=== PATIENT | male | born 1975 | race Two or more races ===

== ENCOUNTER 2024-11-27 14:01 | Inpatient (IN) | payer BC, OTHER ==
[~2024-11-27] VITALS: Ht 180.3 cm; Wt 112.8 kg
--- NOTE | 2024-11-27 14:52 | ED.PDOC ---
HPI Comments 49 y/o M, BIBA, with PMHx of AAA presents to the ED for CC of chest pain. EMS reports, patient is coming from home where he c/o chest pain with associated symptoms of nausea and shortness of breath onset, this morning (11/27/24). Patient reports, chest pain to be substernal, non-radiating, and "pressure" like in nature. Patient relays, that he was told to have a AAA [id number] ago which measured approximally 4.6cm. EMS relays, patient was given Aspirin and Nitro with no change in symptoms. Patient denies nausea, vomiting, abdominal pain, bloody stools, palpitations, headache, numbness, tingling, or weakness. Chief Complaint: Chest Pain Time Seen by MD: 14:40 Reviewed Notes: Nurses Notes, Chief Engineering Division Notes, Medications, Allergies Allergies: Coded Allergies: Penicillins (Verified Allergy, Unknown, 11/27/24) Information Source: Patient, Emergency Med Personnel Mode of Arrival: EMS Severity: Moderate Timing: Hours Duration: Since onset Prehospital treatment: None Location: Substernal Radiation: No Radiation Quality: Pressure Onset: At Rest Cardiac Risk Factors: Smoker PE Risk Factors: None History of: None Modifying Factors: Nothing Associated Signs and Symptoms: SOB Past Medical History Past Medical History (Other): AAA Surgical History: Hernia Repair Surgical History (Other): right -hand, right knee, left-knee Family History Family History: Unknown Social History Smoker: Cigarettes Alcohol: Occasionally Drugs: Marijuana Lives In: Home Constitutional: denies: chills, diaphoresis, fatigue, fever, malaise, sweats, weakness, others EENTM: denies: blurred vision, double vision, ear bleeding, ear discharge, ear drainage, ear pain, ear ringing, eye pain, eye redness, hearing loss, mouth pain, mouth swelling, nasal discharge, nose bleeding, nose congestion, nose pain, photophobia, tearing, throat pain, throat swelling, voice changes, others Respiratory: reports: shortness of breath; denies: cough, hemoptysis, orthopnea, SOB at rest, SOB with excertion, stridor, wheezing, others Cardiovascular: reports: chest pain; denies: dizzy spells, diaphoresis, Dyspnea on exertion, edema, irregular heart beat, left arm pain, lightheadedness, palp itations, PND, syncope, others Gastrointestinal: denies: abdomen distended, abdominal pain, blood streaked bowels, constipated, diarrhea, dysphagia, difficulty swallowing, hematemesis, melena, nausea, poor appetite, poor fluid intake, rectal bleeding, rectal pain, vomiting, others Genitourinary: denies: burning, dysuria, flank pain, frequency, hematuria, incontinence, penile discharge, penile sore, pain, testicle pain, testicle swelling, urgency, others Neurological: denies: dizziness, fainting, headache, left sided numbness, left sided weakness, numbness, paresthesia, pre-existing deficit, right sided numbness, right sided weakness, seizure, speech problems, tingling, tremors, weakness, others Musculoskeletal: denies: back pain, gout, joint pain, joint swelling, muscle pain, muscle stiffness, neck pain, others Integumetry: denies: bruises, change in color, change in hair/nails, dryness, laceration, lesions, lumps, rash, wounds, others Allergic/Immunocompromised: denies: Difficulty Healing, Frequent Infections, Hives, Itching, others Hematologic/Lymphatic: denies: anemia, blood clots, easy bleeding, easy brui sing, swollen glands, others Endocrine: denies: excessive hunger, excessive sweating, excessive thirst, ex cessive urination, flushing, intolerance to cold, intolerance to heat, unexplained weight gain, unexplained weight loss, others Psychiatric: denies: anxiety, bipolar disorder, depression, hopeless, panic disorder, schizophrenia, sleepless, suicidal, others All Other Systems: Reviewed and Negative Physical Exam General Appearance: Moderate Distress HEENT: Normal ENT Inspection, Pharynx Normal, TMs Normal Neck: Full Range of Motion, Non-Tender, Normal, Normal Inspection Respiratory: Chest Non-Tender, Lungs Clear, No Accessory Muscle Use, No Respiratory Distress, Normal Breath Sounds Cardiovascular: No Edema, No JVD, No Murmur, No Gallop, Normal Peripheral Pulses, Regular Rate/Rhythm Breast Exam: Deferred Gastrointestinal: No Organomegaly, Non Tender, No Pulsatile Mass, Normal Bowel Sounds, Soft Genitalia: Deferred Pelvic: Deferred Rectal: Deferred Extremities: No calf tenderness, Normal capillary refill, Normal inspection, Normal range of motion, Non-tender, No pedal edema Musculoskeletal : Apperance: Normal Neurologic: Alert, speech pathologist assistant II-XII nml as Tested, No Motor Deficits, Normal Affect, Normal Mood, No Sensory Deficits Cerebellar Function: Normal Reflexes: Normal Skin: Dry, Normal Color, Warm Lymphatic: No Adenopathy EKG EKG : Pulse Rate (adult): 70 Munger: Normal Cardiac Rhythm: NSR Block: None Was a procedure done? Was a procedure done?: No CP Differential Dx Differential Diagnosis: Angina Differential Diagnosis: Chest Wall Pain, Costochondritis, Esophageal reflux/spasm, Gastritis X-Ray, Labs, Meds, VS Vital Signs Date Time Temp Pulse Resp B/P (MAP) Pulse Ox O2 Delivery O2 Flow Rate FiO2 11/27/24 15:02 72 11/27/24 14:24 97.8 77 16 129/92 99 97.8 11/27/24 14:04 70 Lab Test 11/27/24 16:13 11/27/24 15:51 11/27/24 15:00 Range/Units Urine Color Yellow Yellow Urine Clarity Clear Clear Urine pH 6.5 5.0-9.0 Urine Specific [place] 1.035 1.001-1.035 Urine Protein Trace H Negative Urine Ketones Negative Negative Urine Blood Negative Negative /uL Urine Nitrite Negative Negative Urine Bilirubin Negative Negative Urine Urobilinogen Normal Negative mg/dL Urine Leukocyte Esterase Negative Negative /uL Urine RBC 4 0 - 3 /hpf Urine Microscopic WBC 1 0-3 /HPF Urine Squamous Epithelial Cells Few <5 /hpf Urine Bacteria None seen None Seen /hpf Urine Mucus Few None Seen Urine Glucose Normal Normal mg/dL Troponin I High Sensitivity 3 L 4 </=54 ng/L White Blood Count 15.2 H 4.4-10.8 10^3/uL Red Blood Count 5.83 4.5-5.90 10^6/uL Hemoglobin 17.4 13.5-17.5 g/dL Hematocrit 51.2 41.0-53.0 % Mean Corpuscular Volume 87.9 80.0-100.0 fL Mean Corpuscular Hemoglobin 29.8 28.0-32.0 pg Mean Corpuscular Hemoglobin Concent 33.9 32.0-36.0 g/dL Red Cell Distribution Width 13.9 11.8-14.3 % Platelet Count 311 140-450 10^3/uL Mean Platelet Volume 7.5 6.9-10.8 fL Neutrophils (%) (Auto) 73.7 37.0-80.0 % Lymphocytes (%) (Auto) 16.9 10.0-50.0 % Monocytes (%) (Auto) 8.2 0.0-12.0 % Eosinophils (%) (Auto) 0.8 0.0-7.0 % Basophils (%) (Auto) 0.4 0.0-2.0 % Neutrophils # (Auto) 11.2 H 1.6-8.6 10 ^3/uL Lymphocytes # (Auto) 2.6 0.4-5.4 10 ^3/uL Monocytes # (Auto) 1.2 0-1.3 10 ^3/uL Eosinophils # (Auto) 0.1 0-0.8 10 ^3/uL Basophils # (Auto) 0.1 0-0.2 10 ^3/uL Nucleated Red Blood Cells 0.3 % B-Type Natriuretic Peptide 5.35 0-100 pg/mL [place] [id number] Ph: [phone] DIAGNOSTIC IMAGING Diagnostic Imaging Report : [id number] Signed PATIENT: EUGENIO BASS ACCT: [id number] UNIT: [id number] : 1975 LOC: ER ROOM / BED: / AGE / SEX: 49 / M ADM STATUS: REG ER SERVICE [id number] ORDERING PHYSICIAN: CANDI CHACON MD PROCEDURE(s): CXRP - CHEST PORTABLE REASON: cp ORDER NUMBER(s): [id number], ACCESSION NUMBER(s): [id number] XY CHEST PORTABLE, HISTORY: cp COMPARISON: None None TECHNICAL DATA: 1 view of the chest was obtained. FINDINGS: Lines and tubes: None Cardiomediastinal silhouette: normal Pulmonary vasculature: normal Lung expansion: normal Lung airspace: normal Lung interstitium: normal Pleura: normal Pneumothorax: no Bones: Unremarkable Other: no IMPRESSION: No acute intrathoracic abnormality. The CBC shows an elevated white blood cell count of 15.2. The chemistry panel is within normal limits The urine test is negative The troponin level x2 is negative The patient has risk factors that place him at risk to discharged home so the patient is being admitted with a diagnosis of acute myocardial ischemia Images Reviewed?: Images reviewed and evaluated by me Time of 1ST Reevaluation: 15:10 Reevaluation 1ST: Unchanged Patient Education/Counseling: Diagnosis, Treatment, Prognosis Family Education/Counseling: No Family Present SEPSIS Sepsis Screen Date sepsis recognized/suspect: Nov 27, 2024 Time Sepsis recognized/suspect: 1408 Recent Procedure: No On Antibiotic Therapy: No Respiratory Rate >20: No Heart Rate >90: No Temp<36 C (96.8 F) or >38.3 C: No SBP <90 or MAP <65 mmHG: No New Acute Mental Status Change: No Is the patient on CPAP, BIPAP,: No Physician Orders Electrocardigram (11/27/24 15:11) Electrocardigram (11/27/24 17:11) Chest Portable (11/27/24 14:33) Heplock Iv (11/27/24 14:33) Shop Teacher (11/27/24 14:33) Blood Pressure (11/27/24 14:33) Pulse Oximetry (11/27/24 14:33) Troponin-I Hs (11/27/24 17:33) Vital Signs Date Time Temp Pulse Resp B/P (MAP) Pulse Ox O2 Delivery O2 Flow Rate FiO2 11/27/24 15:02 72 11/27/24 14:24 97.8 77 16 129/92 99 97.8 11/27/24 14:04 70 Laboratory Tests Test 11/27/24 15:00 White Blood Count 15.2 10^3/uL (4.4-10.8) H Departure 1 Departure Time of Disposition: 17:48 Impression: Primary Impression: Acute myocardial ischemia Disposition: 09 ADMITTED INPATIENT Admit to: Tele Condition: Fair Critical Care Note Critical Care Time?: Yes (45 min-critical care time only) Stability Stability form required: Yes Unstable for transfer: Telemetry monitoring (Telemetry monitoring required), ED Physician Assesment (Clinical assesment) Heart Score Heart Score: Heart Score Response (Comments) Value History Moderate Suspicious 1 EKG Repolarization Disturb 1 Age 45-64 1 Risk Factors >3 or Hx ASHD 2 Troponin Normal limit 0 Total 5 I personally scribed for CANDI CHACON MD ([email or web address]) on 11/27/24 at 14:52. Electronically submitted by Cassandra France ([email or web address]). I personally scribed for CANDI CHACON MD ([email or web address]) on 11/27/24 at 15:06. Electronically submitted by Charu Robbins ([facility]). I personally scribed for CANDI CHACON MD ([email or web address]) on 11/27/24 at 15:43. Electronically submitted by Cassandra France ([email or web address]). CANDI CHACON MD Nov 27, 2024 14:52
--- NOTE | 2024-11-27 15:04 | DVH ---
XY CHEST PORTABLE, HISTORY: cp COMPARISON: None None TECHNICAL DATA: 1 view of the chest was obtained. FINDINGS: Lines and tubes: None Cardiomediastinal silhouette: normal Pulmonary vasculature: normal Lung expansion: normal Lung airspace: normal Lung interstitium: normal Pleura: normal Pneumothorax: no Bones: Unremarkable Other: no IMPRESSION: No acute intrathoracic abnormality.
--- NOTE | 2024-11-27 15:04 | ECG ---
[facility] Test Date: 2024-11-27 Test Time: 15:02:42 Pat Name: EUGENIO BASS Department: ED Room: 0212T Gender: M Feeder Catcher: yoanna : 1975 Requested By: EMERGENCY EMERGENCY Order Number: [id number] Reading MD: Karl Marlow Measurements Intervals [place] Rate: 72 P: 9 FL: 168 QRS: -35 QRSD: 102 T: 56 QT: 410 QTc: 449 Interpretive Statements Sinus rhythm Left axis deviation Low voltage, extremity and precordial leads Consider anterior infarct Electronically Signed On 11-29-2024 15:08:30 PDT by Karl Marlow Please click the below link to view image of tracing.
[2024-11-27 15:18] LABS: Hematocrit 51.2 % (41.0-53.0); Hemoglobin 17.4 g/dL (13.5-17.5); Mean Corpuscular Hemoglobin 29.8 pg (28.0-32.0); Mean Corpuscular Volume 87.9 fL (80.0-100.0); Nucleated Red Blood Cells % 0.3 %
[2024-11-27 16:26] LABS: Urine Protein, UAD TRACE (Negative)
[2024-11-27] MEDS ORDERED: MORPHINE SULFATE INJ 2 MG/ml SYRG IV PRN (19:30)
[2024-11-27] MEDS ORDERED: ONDANSETRON HCL 4 MG/2 ML VIAL IV PRN (19:30)
--- NOTE | 2024-11-27 22:23 | DVHHP2 ---
History of Present Illness Reason for Visit: Chest pain History of Present Illness 49-year-old male presents for evaluation of chest pain. Patient reports a one day history of substernal nonradiating chest pressure with associated shortness for breath. She reports history of a AAA two years ago. No nausea or vomiting. No diaphoresis. Past Medical History AAA Past Surgical History Hand surgery Family History Noncontributory Smoke: <1 pack per day ALCOHOL: occassional Drugs: Marijuana Lives: with Family Review of Systems Review of Systems Review of systems are currently negative otherwise addressed in HPI. Allergies: Coded Allergies: Penicillins (Verified Allergy, Unknown, 11/27/24) Medications Current Medications Medications Dose Ordered Sig/Ben Route Start Time Stop Time Status Last Admin Dose Admin Aspirin 81 mg DAILY PO 11/28/24 10:00 Valsartan 160 mg DAILY PO 11/28/24 10:00 Hydrochlorothiazide 12.5 mg DAILY PO 11/28/24 10:00 Metoprolol Succinate 25 mg DAILY PO 11/28/24 10:00 Ondansetron HCl 4 mg Q4HP PRN IV 11/27/24 19:30 Acetaminophen 650 mg Q6HP PRN PO 11/27/24 19:30 Nitroglycerin 0.4 mg Q5MINP PRN SL 11/27/24 19:30 Morphine Sulfate 2 mg Q30M PRN IV 11/27/24 19:30 Exam Vital Signs Vital Signs Date Time Temp Pulse Resp B/P (MAP) Pulse Ox O2 Delivery O2 Flow Rate FiO2 11/27/24 17:50 70 11/27/24 14:24 97.8 16 129/92 99 97.8 Exam Gen: 49-year-old male in mild distress. Skin: Warm, dry, normal color and texture, no rash. HEENT: Normocephalic atraumatic, mucous membranes moist and pink. Neck: Cervical and supraclavicular nodes normal without enlargement, trachea is midline, thyroid gland is normal without masses. Pulmonary: Clear to auscultation and percussion bilaterally. Cardiac: Regular rate and rhythm. No murmur Abdomen: Soft, nontender, nondistended, bowel sounds present all 4 quadrants, no guarding, no rigidity, no organomegaly. Extremities: No cyanosis, clubbing, no edema Neuro: Cranial nerves II through XII grossly intact, normal affect and speech, no focal motor deficits. Labs/Xrays ORDERING PHYSICIAN: CANDI CHACON MD PROCEDURE(s): CXRP - CHEST PORTABLE REASON: cp ORDER NUMBER(s): [id number], ACCESSION NUMBER(s): [id number] XY CHEST PORTABLE, HISTORY: cp COMPARISON: None None TECHNICAL DATA: 1 view of the chest was obtained. FINDINGS: Lines and tubes: None Cardiomediastinal silhouette: normal Pulmonary vasculature: normal Lung expansion: normal Lung airspace: normal Lung interstitium: normal Pleura: normal Pneumothorax: no Bones: Unremarkable Other: no IMPRESSION: No acute intrathoracic abnormality. Labs Test 11/27/24 16:13 11/27/24 15:51 11/27/24 15:00 Range/Units Urine Color Yellow Yellow Urine Clarity Clear Clear Urine pH 6.5 5.0-9.0 Urine Specific [place] 1.035 1.001-1.035 Urine Protein Trace H Negative Urine Ketones Negative Negative Urine Blood Negative Negative /uL Urine Nitrite Negative Negative Urine Bilirubin Negative Negative Urine Urobilinogen Normal Negative mg/dL Urine Leukocyte Esterase Negative Negative /uL Urine RBC 4 0 - 3 /hpf Urine Microscopic WBC 1 0-3 /HPF Urine Squamous Epithelial Cells Few <5 /hpf Urine Bacteria None seen None Seen /hpf Urine Mucus Few None Seen Urine Glucose Normal Normal mg/dL Troponin I High Sensitivity 3 L </=54 ng/L White Blood Count 15.2 H 4.4-10.8 10^3/uL Red Blood Count 5.83 4.5-5.90 10^6/uL Hemoglobin 17.4 13.5-17.5 g/dL Hematocrit 51.2 41.0-53.0 % Mean Corpuscular Volume 87.9 80.0-100.0 fL Mean Corpuscular Hemoglobin 29.8 28.0-32.0 pg Mean Corpuscular Hemoglobin Concent 33.9 32.0-36.0 g/dL Red Cell Distribution Width 13.9 11.8-14.3 % Platelet Count 311 140-450 10^3/uL Mean Platelet Volume 7.5 6.9-10.8 fL Neutrophils (%) (Auto) 73.7 37.0-80.0 % Lymphocytes (%) (Auto) 16.9 10.0-50.0 % Monocytes (%) (Auto) 8.2 0.0-12.0 % Eosinophils (%) (Auto) 0.8 0.0-7.0 % Basophils (%) (Auto) 0.4 0.0-2.0 % Neutrophils # (Auto) 11.2 H 1.6-8.6 10 ^3/uL Lymphocytes # (Auto) 2.6 0.4-5.4 10 ^3/uL Monocytes # (Auto) 1.2 0-1.3 10 ^3/uL Eosinophils # (Auto) 0.1 0-0.8 10 ^3/uL Basophils # (Auto) 0.1 0-0.2 10 ^3/uL Nucleated Red Blood Cells 0.3 % B-Type Natriuretic Peptide 5.35 0-100 pg/mL SEPSIS Sepsis Screen Date sepsis recognized/suspect: Nov 27, 2024 Time Sepsis recognized/suspect: 1407 Recent Procedure: No On Antibiotic Therapy: No Respiratory Rate >20: No Heart Rate >90: No Temp<36 C (96.8 F) or >38.3 C: No SBP <90 or MAP <65 mmHG: No New Acute Mental Status Change: No Is the patient on CPAP, BIPAP,: No Physician Orders Chest Portable (11/27/24 14:33) Heplock Iv (11/27/24 14:33) Hearing Aid Technician (11/27/24 14:33) Blood Pressure (11/27/24 14:33) Pulse Oximetry (11/27/24 14:33) Aspirin Tablet (11/28/24 10:00) Valsartan (Diovan) (11/28/24 10:00) Hydrochlorothiazide Tablet (Hydrochlorot (11/28/24 10:00) Metoprolol Xl Succinate (Toprol Xl) (11/28/24 10:00) Basic Metabolic Panel (11/28/24 04:00) Admit (11/27/24 19:26) Ondansetron Hcl (Zofran) (11/27/24 19:30) Cardiac Diet-2gna,Lofat,Lochol (11/28/24 Breakfast) Echo 2d Mode Cardiac Dop (11/27/24 19:26) Condition: Fair (11/27/24 19:26) Acetaminophen Tablet (Tylenol Tablet) (11/27/24 19:30) Bedrest With Bathroom Privileg (11/27/24 19:26) Nitroglycerin Sublingual (Ntrostat Subli (11/27/24 19:30) Morphine Sulfate Injection (11/27/24 19:30) Stat Ekg For Chest Pain (11/27/24:) Notify Md Of Changes From Base (11/27/24 19:26) Machine Burrer For 24 Hours (11/27/24:) Emergency Dysrhythmia Protocol (11/27/24:) Rhythm Strips Once Every Shift (11/27/24:) Oxygen By Nasal Cannula (11/27/24:) Vital Signs Date Time Temp Pulse Resp B/P (MAP) Pulse Ox O2 Delivery O2 Flow Rate FiO2 11/27/24 17:50 70 11/27/24 15:02 72 11/27/24 14:24 97.8 77 16 129/92 99 97.8 Laboratory Tests Test 11/27/24 15:00 White Blood Count 15.2 10^3/uL (4.4-10.8) H Assessment/Plan Assessment/Plan Assessment Chest pain Hypertension Active smoker Plan Admit the patient to telemetry to the hospitalist Echocardiogram pending ACS protocol Continue treatment per orders. Plan discussed with: Patient My Orders Orders - SAMMIE GIRALDO Procedure Category Date Status Time Aspirin Tablet PHA 11/28/24 In Process 10:00 Valsartan (Diovan) PHA 11/28/24 In Process 10:00 Hydrochlorothiazide PHA 11/28/24 In Process Tablet (Hydrochlorot 10:00 Metoprolol Xl PHA 11/28/24 In Process Succinate (Toprol Xl) 10:00 Basic Metabolic Panel LAB 11/28/24 Verified 04:00 Admit ADMIT 11/27/24 Transmitted 19:26 Ondansetron Hcl PHA 11/27/24 In Process (Zofran) 19:30 Cardiac DIET 11/28/24 Transmitted Diet-2gna,Lofat,Lochol Breakfast Echo 2d Mode Cardiac US 11/27/24 Logged DOP 19:26 Condition: Fair STEFANIA 11/27/24 In Process 19:26 Acetaminophen Tablet PHA 11/27/24 In Process (Tylenol Tablet) 19:30 Bedrest With Bathroom STEFANIA 11/27/24 In Process Privileg 19:[address] [facility] 11/27/24 In Process Sublingual (Ntrostat 19:30 Morphine Sulfate PHA 11/27/24 In Process Injection 19:30 Stat Ekg For Chest [facility] 11/27/24 In Process Pain 19:26 Notify Md Of Changes [facility] 11/27/24 In Process From Base 19:26 Machine Burrer For [facility] 11/27/24 In Process 24 Hours 19:26 Emergency Dysrhythmia [facility] 11/27/24 In Process Protocol 19:26 Rhythm Strips Once [facility] 11/27/24 In Process Every Shift 19:26 Oxygen By Nasal RT 11/27/24 Transmitted Cannula 19:26 Date of Service: Nov 27, 2024 Billing Provider: SAMMIE GIRALDO Common Visit Codes: [id number] INP/OBS CARE (HIGH) SAMMIE GIRALDO Nov 27, 2024 22:23
[2024-11-27 22:39] LABS: Triglycerides 106 mg/dL (< 150)
[2024-11-27 22:41] LABS: Cholesterol 169 mg/dL (< 200); HDL Cholesterol 46 mg/dL (40-59)
[2024-11-28 00:03] VITALS: PULSE 70; RESP 18; O2SAT 95
[2024-11-28 03:41] LABS: Chloride 103 mmol/L (98-107); Potassium 4.4 mmol/L (3.5-5.1); Sodium 142 mmol/L (136-145)
[2024-11-28 03:42] LABS: Anion Gap 9 (5-15); Calcium 9.0 mg/dL (8.7-10.4); Carbon Dioxide 30 mmol/L (20-31)
[2024-11-28 03:47] LABS: BUN/Creatinine Ratio 10.3 (10.0-20.0); Blood Urea Nitrogen 12 mg/dL (9-23); Glucose 102 mg/dL (74-106)
[2024-11-28 09:00] VITALS: BP 103/76; PULSE 84; RESP 22; TEMP 97.8; O2SAT 98
[2024-11-28] MEDS: VALSARTAN 80 MG TAB PO SCH (10:00)
[2024-11-28] MEDS: METOPROLOL SUCCINATE XL 50 MG TAB PO SCH (10:00)
[2024-11-28] MEDS: hydroCHLOROthiazide 25 MG TAB PO SCH (10:00)
[2024-11-28 13:00] VITALS: BP 123/79; PULSE 61; RESP 16; TEMP 97.9; O2SAT 96
[2024-11-28] MEDS: IOHEXOL 350 MG/ML 100ML IJ ONE (15:56)
--- NOTE | 2024-11-28 16:06 | DVHPN2 ---
Subjective Continues to have intermittent chest pain. Reviewed: Care Plan, H&P, Labs, Medications Changes from previous H/P or p: No Changes General: Per HPI Objective Vitals Vital Signs Date Time Temp Pulse Resp B/P (MAP) Pulse Ox O2 Delivery O2 Flow Rate FiO2 11/28/24 13:00 97.9 61 16 123/79 (94) 96 97.9 11/28/24 00:03 Room Air* 0 21 General Appearance: Alert, Oriented X3, Cooperative HEENT: Atraumatic, PERRLA Lungs: Clear to auscultation, Normal air movement Cardiovascular: Normal S1, Normal S2 Abdomen: Normal bowel sounds, Soft, No tenderness Musculoskeletal: Normal sensory function, Normal motor function Skin: Dry, Intact Psych/Mental Status: Mental status NL, Mood NL Medications Current Medications Medications Dose Ordered Sig/Ben Route Start Time Stop Time Status Last Admin Dose Admin Aspirin 81 mg DAILY PO 11/28/24 10:00 11/28/24 10:00 81 MG Valsartan 160 mg DAILY PO 11/28/24 10:00 11/28/24 10:00 160 MG Hydrochlorothiazide 12.5 mg DAILY PO 11/28/24 10:00 11/28/24 10:00 12.5 MG Metoprolol Succinate 25 mg DAILY PO 11/28/24 10:00 11/28/24 10:00 25 MG Ondansetron HCl 4 mg Q4HP PRN IV 11/27/24 19:30 Acetaminophen 650 mg Q6HP PRN PO 11/27/24 19:30 Nitroglycerin 0.4 mg Q5MINP PRN SL 11/27/24 19:30 Morphine Sulfate 2 mg Q30M PRN IV 11/27/24 19:30 Laboratory Results Laboratory Tests 11/27/24 15:00 11/28/24 03:05 Chemistry Test 11/28/24 03:05 Calcium Level 9.0 mg/dL (8.7-10.4) Urinalysis Test 11/27/24 16:13 Urine Color Yellow (Yellow) Urine Clarity Clear (Clear) Urine pH 6.5 (5.0-9.0) Urine Specific [place] 1.035 (1.001-1.035) Urine Protein Trace (Negative) H Urine Ketones Negative (Negative) Urine Blood Negative /uL (Negative) Urine Nitrite Negative (Negative) Urine Bilirubin Negative (Negative) Urine Urobilinogen Normal mg/dL (Negative) Urine Leukocyte Esterase Negative /uL (Negative) Urine RBC 4 /hpf (0 - 3) Urine Microscopic WBC 1 /HPF (0-3) Urine Squamous Epithelial Cells Few /hpf (<5) Urine Bacteria None seen /hpf (None Seen) Urine Mucus Few (None Seen) Urine Glucose Normal mg/dL (Normal) Labs and/or images reviewed: Labs reviewed by me, Image(s) reviewed by me Assessment/Plan Assessment/Plan Impression: -Chest pain -Reported Hx of Ascending Aortic Aneurysm -Primary hypertension -Nicotine Dependence Plan: -CT angiogram of the chest -BP control to keep SBP less than 130mmhg -Pain management -Cardiology Consult -Echocardiogram Total time: 35 min spent with the patient. Plan discussed with: Patient, Other (RN) My Orders Orders - TYLER CAMPBELL NP Procedure Category Date Status Time Aaa Screening US 11/29/24 Logged 08:[address] 11/28/24 Logged Contrast 15:39 Basic Metabolic Panel LAB 11/29/24 Verified 04:00 Date of Service: Nov 28, 2024 Billing Provider: TYLER CAMPBELL NP Common Visit Codes: [id number] INP/OBS CARE(HIGH) TYLER CAMPBELL NP Nov 28, 2024 16:06
[2024-11-28 17:00] VITALS: BP 113/88; PULSE 81; RESP 18; TEMP 97.8; O2SAT 91
--- NOTE | 2024-11-28 17:33 | DVH ---
Indication: Ascending aortic aneurysm, rule out dissection Technique: CT axial images of the chest /abdomen/pelvis are obtained with intravenous contrast per C T angiogram protocol. Coronal and sagittal reformats were obtained. Radiation Dose Information: CTDI volume is 18 29.6 mGy. Dose-length product is 1257.5 mGy*cm Comparison: None FINDINGS: The heart size is within normal limits. Coronary artery calcification disease. Ascending aorta measu res 3.9 x 3.7 cm. Descending thoracic aorta measures 2.2 cm. No large defect within the main left rig ht pulmonary arteries. Abdominal aortic atherosclerotic disease. No aneurysmal dilatation. Infrarenal abdominal aorta measu res 1.5 cm in diameter. Celiac, SMA, renal, inferior mesenteric arteries are patent. Common, rehab assistant al iliac arteries are patent. The trachea is patent. No pneumothorax. 3 mm right upper lobe solid nodule.1 No mediastinal/ hilar lymphadenopathy. No supraclavicular, axillary lymphadenopathy. Adrenal glands, spleen, pancreas and liver unremarkable in shape. No CT evidence for cholelithiasis. No hydronephrosis. Stomach partially distended. Small bowel loops are moderately distended up to 4 cm with air-fluid levels. Moderate volume stool in the colon. Normal appendix. Bladder partially dist ended. No free pelvic fluid. No inguinal lymphadenopathy. No aggressive osseous process. There is moderate thoracolumbar degenerative disc disease. L5 pars def ects. IMPRESSION: No evidence for aortic dissection/aneurysmal dilatation. Coronary artery calcification disease. 3 mm right upper lobe solid pulmonary nodule. Recommend follow-up per Fleischner society criteria gu idelines. Multiple loops of distended small bowel with air-fluid levels which can be secondary to ileus, enteri tis, partial small bowel obstruction. Other findings as described.
[2024-11-28 21:00] VITALS: BP 126/87; PULSE 97; RESP 20; TEMP 98.1; O2SAT 88
[2024-11-28 23:52] VITALS: PULSE 78; RESP 18; O2SAT 96
[2024-11-29] VITALS (12 sets, daily range): BP systolic 99–128; BP diastolic 65–88; PULSE 52–94; RESP 16–20; TEMP 97.9–98.8; O2SAT 90–98
[2024-11-29] MEDS: NITROGLYCERIN 0.4 MG SL TAB SL PRN (02:05)
[2024-11-29] MEDS: KETOROLAC TROMETH 30 MG/ML 1ML VIAL IV ONE (03:11)
[2024-11-29 04:48] LABS: Anion Gap 9 (5-15); Carbon Dioxide 27 mmol/L (20-31); Chloride 104 mmol/L (98-107); Potassium 4.0 mmol/L (3.5-5.1); Sodium 140 mmol/L (136-145)
[2024-11-29 04:50] LABS: Calcium 8.6 mg/dL (8.7-10.4)
[2024-11-29 04:54] LABS: BUN/Creatinine Ratio 10.3 (10.0-20.0); Blood Urea Nitrogen 11 mg/dL (9-23); Glucose 98 mg/dL (74-106)
--- NOTE | 2024-11-29 13:39 | DVHPN2 ---
Subjective Continues to have intermittent chest pain. Reviewed: Care Plan, H&P, Labs, Medications Changes from previous H/P or p: No Changes General: Per HPI Objective Vitals Vital Signs Date Time Temp Pulse Resp B/P (MAP) Pulse Ox O2 Delivery O2 Flow Rate FiO2 11/29/24 09:40 98 127/78 11/29/24 09:00 98.2 18 98 98.2 11/29/24 00:14 Room Air* 0 21 Intake/Output Intake and Output 11/29/24 07:00 Output Total 350 ml Balance -350 ml Output Urine Total 350 ml # Voids 1 General Appearance: Alert, Oriented X3, Cooperative HEENT: Atraumatic, PERRLA Lungs: Clear to auscultation, Normal air movement Cardiovascular: Normal S1, Normal S2 Abdomen: Normal bowel sounds, Soft, No tenderness Musculoskeletal: Normal sensory function, Normal motor function Skin: Dry, Intact Psych/Mental Status: Mental status NL, Mood NL Medications Current Medications Medications Dose Ordered Sig/Ben Route Start Time Stop Time Status Last Admin Dose Admin Aspirin 81 mg DAILY PO 11/28/24 10:00 11/29/24 09:39 81 MG Valsartan 160 mg DAILY PO 11/28/24 10:00 11/29/24 09:38 160 MG Hydrochlorothiazide 12.5 mg DAILY PO 11/28/24 10:00 11/29/24 09:38 12.5 MG Metoprolol Succinate 25 mg DAILY PO 11/28/24 10:00 11/29/24 09:40 25 MG Ondansetron HCl 4 mg Q4HP PRN IV 11/27/24 19:30 Acetaminophen 650 mg Q6HP PRN PO 11/27/24 19:30 Nitroglycerin 0.4 mg Q5MINP PRN SL 11/27/24 19:30 11/29/24 02:23 0.4 MG Morphine Sulfate 2 mg Q30M PRN IV 11/27/24 19:30 Laboratory Results Laboratory Tests 11/27/24 15:00 11/29/24 04:11 Chemistry Test 11/29/24 04:11 Calcium Level 8.6 mg/dL (8.7-10.4) L Urinalysis Test 11/27/24 16:13 Urine Color Yellow (Yellow) Urine Clarity Clear (Clear) Urine pH 6.5 (5.0-9.0) Urine Specific [place] 1.035 (1.001-1.035) Urine Protein Trace (Negative) H Urine Ketones Negative (Negative) Urine Blood Negative /uL (Negative) Urine Nitrite Negative (Negative) Urine Bilirubin Negative (Negative) Urine Urobilinogen Normal mg/dL (Negative) Urine Leukocyte Esterase Negative /uL (Negative) Urine RBC 4 /hpf (0 - 3) Urine Microscopic WBC 1 /HPF (0-3) Urine Squamous Epithelial Cells Few /hpf (<5) Urine Bacteria None seen /hpf (None Seen) Urine Mucus Few (None Seen) Urine Glucose Normal mg/dL (Normal) Labs and/or images reviewed: Labs reviewed by me, Image(s) reviewed by me Assessment/Plan Assessment/Plan Impression: -Chest pain -Reported Hx of Ascending Aortic Aneurysm -Primary hypertension -Nicotine Dependence -questionable small-bowel obstruction partial -constipation Plan: Events: CT angiogram of the chest negative for reported aneurysm -cardiology consultation placed -reported nausea. Start bowel regimen -Pain management -Cardiology Consult -Echocardiogram: Pending results Total time spent with patient discussing and formulating plan of care: 35 minute. This medical document was created using an electronic medical record system with [employer] dictation system. Although this document has been carefully reviewed, there may still be some phonetic and typographical errors. These areas are purely typographical due to imperfections of the software programs, and do not reflect any compromise in the patient's medical care. Plan discussed with: Patient, Other (RN) My Orders Orders - TYLER CAMPBELL NP Procedure Category Date Status Time Ct Angio Chest CT 11/28/24 Resulted Contrast 15:39 * Cardiology Consult CONS 11/29/24 Transmitted 08:50 Lactulose Oral PHA 11/29/24 Transmitted 13:45 Polyethylene Glycol PHA 11/30/24 Verified 17g Powder (Miralax 10:00 Date of Service: Nov 29, 2024 Billing Provider: TYLER CAMPBELL NP Common Visit Codes: [id number] INP/OBS CARE(HIGH) TYLER CAMPBELL NP Nov 29, 2024 13:39
[2024-11-29] MEDS ORDERED: LACTULOSE 20Gm/30ML SOLN PO ONE (13:45)
--- NOTE | 2024-11-29 14:18 | DVHINCON2 ---
Date Seen: Nov 29, 2024 Referring Physician SAMANTHA Rose Reason for Consultation Chest pain, rule out ACS History of Present Illness This is a 49-year-old male patient who presents to the emergency room with chief complaint of chest pain. The patient reports he has been experiencing symptoms for approximately two years. 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 He reports coming to the emergency room for unrelieved chest pain. He describes it as unprovoked, intermittent, pressure-like in nature, substernal with radiation to his upper back and jaw. Associated symptoms include shortness of breath. Initial twelve lead electrocardiogram seen in patient's chart reveals normal sinus rhythm without any significant ST segment changes and baseline wander. Serial troponin levels have been negative. Significant past medical history includes hypertension, abdominal aortic aneurysm without intervention, tobacco use, polysubstance use, and obesity. Past Medical History Past medical history reviewed. No other significant than mentioned above. Past Surgical History Hernia repair Family History: Patient reports no known family medical history. Family History Family history reviewed. Social History Patient has a 15 pack-year history, quit smoking cigarettes but vapes daily Patient admits to recent methamphetamine use approximately one week ago Patient denies alcohol use Allergies: Coded Allergies: Penicillins (Verified Allergy, Unknown, 11/27/24) Home Meds Unable to Obtain Active Prescriptions or Reported Meds Home Meds Home medications reviewed. Current Medications Current Medications Medications (Trade) Dose Ordered Sig/Ben Route PRN Reason Start Time Stop Time Status Last Admin Polyethylene Glycol (Miralax 17GM Powder) 17 gm DAILY PO 11/30/24 10:00 Metoclopramide HCl (Reglan Injection) 10 mg Q8HR IV 11/29/24 14:00 11/30/24 06:01 Review of Systems Constitutional: No symptom reported Ears, Nose, & Throat: No symptom reported Eyes: No symptom reported Neurological: No symptoms reported Pulmonary/Respiratory: Shortness of breath Cardiovascular: Chest pain Gastrointestinal: No symptom reported Genitourinary: No symptom reported Musculoskeletal: No symptom reported Skin: No symptom reported Psychiatric: No symptom reported Endocrine: No symptom reported Hematologic/Lymphatic: No symptom reported Vital Signs Vital Signs Date Time Temp Pulse Resp B/P (MAP) Pulse Ox O2 Delivery O2 Flow Rate FiO2 11/29/24 09:40 98 127/78 11/29/24 09:00 98.2 18 98 98.2 11/29/24 00:14 Room Air* 0 21 Physical Exam General Appearance: Cooperative. Well-developed. Well-nourished. No acute distress. Pulmonary/Respiratory: Clear, bilateral breaths sounds. Cardiovascular/Chest: Regular rate and rhythm. Peripheral Pulses: 2+ Radial (R). 2+ Radial (L). 2+ Pedal (R). 2+ Pedal (L) Abdominal Exam: Normal bowel sounds. Ankle Exam: Negative ankle edema Lower extremities: Negative lower extremity edema Neuro/Mental Status: A/OX4, coherent. Thoughts/Psych: Normal thought pattern. Appropriate mood and affect. Good judgment and insight. Appearance: No acute distress. Skin Exam: Normal inspection. Normal color. Warm and dry. Labs/Diagnostic Data Labs Test 11/29/24 04:11 11/27/24 16:13 11/27/24 15:51 11/27/24 15:00 Range/Units Sodium Level 140 136-145 mmol/L Potassium Level 4.0 3.5-5.1 mmol/L Chloride Level 104 98-107 mmol/L Carbon Dioxide Level 27 20-31 mmol/L Anion Gap 9 5-15 Blood Urea Nitrogen 11 9-23 mg/dL Creatinine 1.07 0.700-1.30 mg/dL Glomerular Filtration Rate Calc 84 >90 mL/min BUN/Creatinine Ratio 10.3 10.0-20.0 Serum Glucose 98 74-106 mg/dL Calcium Level 8.6 L 8.7-10.4 mg/dL Troponin I High Sensitivity 3 L </=54 ng/L Urine Color Yellow Yellow Urine Clarity Clear Clear Urine pH 6.5 5.0-9.0 Urine Specific [place] 1.035 1.001-1.035 Urine Protein Trace H Negative Urine Ketones Negative Negative Urine Blood Negative Negative /uL Urine Nitrite Negative Negative Urine Bilirubin Negative Negative Urine Urobilinogen Normal Negative mg/dL Urine Leukocyte Esterase Negative Negative /uL Urine RBC 4 0 - 3 /hpf Urine Microscopic WBC 1 0-3 /HPF Urine Squamous Epithelial Cells Few <5 /hpf Urine Bacteria None seen None Seen /hpf Urine Mucus Few None Seen Urine Glucose Normal Normal mg/dL Triglycerides Level 106 < 150 mg/dL Cholesterol Level 169 < 200 mg/dL LDL Cholesterol 116 H < 100 mg/dL HDL Cholesterol 46 40-59 mg/dL White Blood Count 15.2 H 4.4-10.8 10^3/uL Red Blood Count 5.83 4.5-5.90 10^6/uL Hemoglobin 17.4 13.5-17.5 g/dL Hematocrit 51.2 41.0-53.0 % Mean Corpuscular Volume 87.9 80.0-100.0 fL Mean Corpuscular Hemoglobin 29.8 28.0-32.0 pg Mean Corpuscular Hemoglobin Concent 33.9 32.0-36.0 g/dL Red Cell Distribution Width 13.9 11.8-14.3 % Platelet Count 311 140-450 10^3/uL Mean Platelet Volume 7.5 6.9-10.8 fL Neutrophils (%) (Auto) 73.7 37.0-80.0 % Lymphocytes (%) (Auto) 16.9 10.0-50.0 % Monocytes (%) (Auto) 8.2 0.0-12.0 % Eosinophils (%) (Auto) 0.8 0.0-7.0 % Basophils (%) (Auto) 0.4 0.0-2.0 % Neutrophils # (Auto) 11.2 H 1.6-8.6 10 ^3/uL Lymphocytes # (Auto) 2.6 0.4-5.4 10 ^3/uL Monocytes # (Auto) 1.2 0-1.3 10 ^3/uL Eosinophils # (Auto) 0.1 0-0.8 10 ^3/uL Basophils # (Auto) 0.1 0-0.2 10 ^3/uL Nucleated Red Blood Cells 0.3 % B-Type Natriuretic Peptide 5.35 0-100 pg/mL Thyroid Stimulating Hormone (TSH) 1.45 0.55-4.78 uIU/mL Assessment Chest pain, rule out coronary artery disease Rule out structural heart disease Hypertension Hyperlipidemia, newly diagnosed Abdominal aortic aneurysm Tobacco use History of methamphetamine use Obesity Plan/Recommendation We will continue following plan/recommendations (Dr. Gray): * Transthoracic echocardiogram to evaluate cardiac function * Chest pain protocol * HEART score: 3 points * Single antiplatelet therapy and lipid-lowering agent * Blood pressure control * Close cardiac surveillance * Nuclear stress test Case discussed with . We will proceed with obtaining a transthoracic echocardiogram and nuclear stress test. The patient is agreeable to plan. Thank you for allowing us to care for this patient. Please call with any questions or concerns. Critical care time spent: 44 minutes This medical document was created using an electronic medical record system with voice recognition software and computerized dictation system. Although this document has been carefully reviewed, there might still be some phonetic and typographical errors. Occasional wrong-word or ``sound-alike substitutions may have occurred due to the inherent limitations of voice recognition software. These areas are purely typographical due to imperfections of the software programs and do not reflect any compromise in the patient's medical care. Gavin singleton read the chart carefully and recognize, using context, where these substitutions have occurred. Plan discussed with: Patient NYHA Physical activity limitations: NA Date of Service: Nov 29, 2024 Billing Provider: XI KING Cardiology Common Codes: [id number] INP/OBS CARE (High) Cardiology Consultation Codes: [id number] CONSULT <45MIN XI KING Nov 29, 2024 14:18
[2024-11-29] MEDS: ATORVASTATIN 20 MG TAB PO SCH (22:25)
[2024-11-29] MEDS: METOCLOPRAMIDE HCL 5MG/ml INJ 2ml VIAL IV SCH (22:25)
[2024-11-30] VITALS (8 sets, daily range): BP systolic 108–143; BP diastolic 62–91; PULSE 61–86; RESP 17–20; TEMP 97.4–98.9; O2SAT 95–98
[2024-11-30] MEDS: ACETAMINOPHEN 325 MG TAB PO PRN (00:12)
--- NOTE | 2024-11-30 02:41 | DVHINCON2 ---
Date Seen: Nov 29, 2024 Referring Physician SAMANTHA Rose Reason for Consultation Chest pain, rule out ACS History of Present Illness This is a 49-year-old male with a past medical history of hypertension, abdominal aortic aneurysm without intervention, tobacco use, polysubstance use, and obesity who presents to the emergency room with a complaint of chest pain. The patient reports he has been experiencing symptoms for approximately two years. 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 He describes it as unprovoked, intermittent, pressure-like in nature, substernal with radiation to his upper back and jaw. Associated symptoms include shortness of breath. Initial twelve lead electrocardiogram seen in patient's chart reveals normal sinus rhythm without any significant ST segment changes and baseline wander. Serial troponin levels have been negative. Chest x-ray showed NAD. Patient was admitted to the hospital. I am asked to consult on this patient. Past Medical History Past medical history reviewed. No other significant than mentioned above. Past Surgical History Hernia repair Family History: Patient reports no known family medical history. Allergies: Coded Allergies: Penicillins (Verified Allergy, Unknown, 11/27/24) Home Meds Unable to Obtain Active Prescriptions or Reported Meds Current Medications Current Medications Medications (Trade) Dose Ordered Sig/Ben Route PRN Reason Start Time Stop Time Status Last Admin Polyethylene Glycol (Miralax 17GM Powder) 17 gm DAILY PO 11/30/24 10:00 Metoclopramide HCl (Reglan Injection) 10 mg Q8HR IV 11/29/24 14:00 11/30/24 06:01 Atorvastatin Calcium (Lipitor) 20 mg HS PO 11/29/24 22:00 Review of Systems Constitutional: No symptom reported Ears, Nose, & Throat: No symptom reported Eyes: No symptom reported Neurological: No symptoms reported Pulmonary/Respiratory: Shortness of breath Cardiovascular: Chest pain Gastrointestinal: No symptom reported Genitourinary: No symptom reported Musculoskeletal: No symptom reported Skin: No symptom reported Psychiatric: No symptom reported Endocrine: No symptom reported Hematologic/Lymphatic: No symptom reported Vital Signs Vital Signs Date Time Temp Pulse Resp B/P (MAP) Pulse Ox O2 Delivery O2 Flow Rate FiO2 11/29/24 09:40 98 127/78 11/29/24 09:00 98.2 18 98 98.2 11/29/24 00:14 Room Air* 0 21 Physical Exam GENERAL: Alert and oriented x 3. No acute distress. EYES: PERRL, EOMI. Anicteric. HENT: Moist mucous membranes. LUNGS: Clear to auscultation bilaterally. CARDIOVASCULAR: Regular rate and rhythm. ABDOMEN: Soft, nontender and nondistended. EXTREMITIES: No edema. NEUROLOGIC: No focal neurological deficits. SKIN: Warm, dry. Labs/Diagnostic Data Labs Test 11/29/24 04:11 11/27/24 16:13 11/27/24 15:51 11/27/24 15:00 Range/Units Sodium Level 140 136-145 mmol/L Potassium Level 4.0 3.5-5.1 mmol/L Chloride Level 104 98-107 mmol/L Carbon Dioxide Level 27 20-31 mmol/L Anion Gap 9 5-15 Blood Urea Nitrogen 11 9-23 mg/dL Creatinine 1.07 0.700-1.30 mg/dL Glomerular Filtration Rate Calc 84 >90 mL/min BUN/Creatinine Ratio 10.3 10.0-20.0 Serum Glucose 98 74-106 mg/dL Calcium Level 8.6 L 8.7-10.4 mg/dL Troponin I High Sensitivity 3 L </=54 ng/L Urine Color Yellow Yellow Urine Clarity Clear Clear Urine pH 6.5 5.0-9.0 Urine Specific [place] 1.035 1.001-1.035 Urine Protein Trace H Negative Urine Ketones Negative Negative Urine Blood Negative Negative /uL Urine Nitrite Negative Negative Urine Bilirubin Negative Negative Urine Urobilinogen Normal Negative mg/dL Urine Leukocyte Esterase Negative Negative /uL Urine RBC 4 0 - 3 /hpf Urine Microscopic WBC 1 0-3 /HPF Urine Squamous Epithelial Cells Few <5 /hpf Urine Bacteria None seen None Seen /hpf Urine Mucus Few None Seen Urine Glucose Normal Normal mg/dL Triglycerides Level 106 < 150 mg/dL Cholesterol Level 169 < 200 mg/dL LDL Cholesterol 116 H < 100 mg/dL HDL Cholesterol 46 40-59 mg/dL White Blood Count 15.2 H 4.4-10.8 10^3/uL Red Blood Count 5.83 4.5-5.90 10^6/uL Hemoglobin 17.4 13.5-17.5 g/dL Hematocrit 51.2 41.0-53.0 % Mean Corpuscular Volume 87.9 80.0-100.0 fL Mean Corpuscular Hemoglobin 29.8 28.0-32.0 pg Mean Corpuscular Hemoglobin Concent 33.9 32.0-36.0 g/dL Red Cell Distribution Width 13.9 11.8-14.3 % Platelet Count 311 140-450 10^3/uL Mean Platelet Volume 7.5 6.9-10.8 fL Neutrophils (%) (Auto) 73.7 37.0-80.0 % Lymphocytes (%) (Auto) 16.9 10.0-50.0 % Monocytes (%) (Auto) 8.2 0.0-12.0 % Eosinophils (%) (Auto) 0.8 0.0-7.0 % Basophils (%) (Auto) 0.4 0.0-2.0 % Neutrophils # (Auto) 11.2 H 1.6-8.6 10 ^3/uL Lymphocytes # (Auto) 2.6 0.4-5.4 10 ^3/uL Monocytes # (Auto) 1.2 0-1.3 10 ^3/uL Eosinophils # (Auto) 0.1 0-0.8 10 ^3/uL Basophils # (Auto) 0.1 0-0.2 10 ^3/uL Nucleated Red Blood Cells 0.3 % B-Type Natriuretic Peptide 5.35 0-100 pg/mL Thyroid Stimulating Hormone (TSH) 1.45 0.55-4.78 uIU/mL Assessment Chest pain, rule out coronary artery disease. Rule out structural heart disease. Hypertension. Hyperlipidemia, newly diagnosed. Abdominal aortic aneurysm. Tobacco use. History of methamphetamine use. Obesity. Plan/Recommendation I agree with your ongoing assessment and care of plan. Patient has been seen by Angela Zaragoza NP on my behalf, her and I discussed the plan with the patient. Transthoracic echocardiogram to evaluate cardiac function. Chest pain protocol. HEART score: 3 points. Single antiplatelet therapy and lipid-lowering agent. Blood pressure control. Close cardiac surveillance. Nuclear stress test. We will proceed with obtaining a transthoracic echocardiogram and nuclear stress test. The patient is agreeable to plan. Additional plan as per the hospital course. Plan discussed with: Patient NYHA Physical activity limitations: NA Date of Service: Nov 29, 2024 Billing Provider: TATE MARINA MD Cardiology Common Codes: [id number] INP/OBS CARE (High) Cardiology Consultation Codes: [id number] CONSULT <45MIN TATE MARINA MD Nov 29, 2024 15:58
--- NOTE | 2024-11-30 07:56 | ECG ---
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
[2024-11-30] MEDS: REGADENOSON 0.4 MG/5 ML SYRG IV ONE ×2 (09:04→09:13)
[2024-11-30] MEDS: POLYETHYLENE GLYCOL 17 GM PWDR PO SCH (09:53)
--- NOTE | 2024-11-30 09:53 | DVHPN2 ---
Subjective Denies any chest pain Reviewed: Care Plan, H&P, Labs, Medications Changes from previous H/P or p: No Changes General: Per HPI Objective Vitals Vital Signs Date Time Temp Pulse Resp B/P (MAP) Pulse Ox O2 Delivery O2 Flow Rate FiO2 11/30/24 05:00 97.4 73 18 108/75 (86) 95 97.4 11/29/24 20:00 Room Air* 0 21 Intake/Output Intake and Output 11/30/24 07:00 Intake Total 2446 ml Balance 2446 ml Intake Oral 2446 ml # Voids 5 # Bowel Movements 1 General Appearance: Alert, Oriented X3, Cooperative HEENT: Atraumatic, PERRLA Lungs: Clear to auscultation, Normal air movement Cardiovascular: Normal S1, Normal S2 Abdomen: Normal bowel sounds, Soft, No tenderness Musculoskeletal: Normal sensory function, Normal motor function Skin: Dry, Intact Psych/Mental Status: Mental status NL, Mood NL Medications Current Medications Medications Dose Ordered Sig/Ben Route Start Time Stop Time Status Last Admin Dose Admin Aspirin 81 mg DAILY PO 11/28/24 10:00 11/29/24 09:39 81 MG Valsartan 160 mg DAILY PO 11/28/24 10:00 11/29/24 09:38 160 MG Hydrochlorothiazide 12.5 mg DAILY PO 11/28/24 10:00 11/29/24 09:38 12.5 MG Metoprolol Succinate 25 mg DAILY PO 11/28/24 10:00 11/29/24 09:40 25 MG Ondansetron HCl 4 mg Q4HP PRN IV 11/27/24 19:30 Acetaminophen 650 mg Q6HP PRN PO 11/27/24 19:30 11/30/24 00:12 650 MG Nitroglycerin 0.4 mg Q5MINP PRN SL 11/27/24 19:30 11/29/24 02:23 0.4 MG Morphine Sulfate 2 mg Q30M PRN IV 11/27/24 19:30 Polyethylene Glycol 17 gm DAILY PO 11/30/24 10:00 Atorvastatin Calcium 20 mg HS PO 11/29/24 22:00 11/29/24 22:25 20 MG Laboratory Results Laboratory Tests 11/27/24 15:00 11/29/24 04:11 Urinalysis Test 11/27/24 16:13 Urine Color Yellow (Yellow) Urine Clarity Clear (Clear) Urine pH 6.5 (5.0-9.0) Urine Specific [place] 1.035 (1.001-1.035) Urine Protein Trace (Negative) H Urine Ketones Negative (Negative) Urine Blood Negative /uL (Negative) Urine Nitrite Negative (Negative) Urine Bilirubin Negative (Negative) Urine Urobilinogen Normal mg/dL (Negative) Urine Leukocyte Esterase Negative /uL (Negative) Urine RBC 4 /hpf (0 - 3) Urine Microscopic WBC 1 /HPF (0-3) Urine Squamous Epithelial Cells Few /hpf (<5) Urine Bacteria None seen /hpf (None Seen) Urine Mucus Few (None Seen) Urine Glucose Normal mg/dL (Normal) Labs and/or images reviewed: Labs reviewed by me, Image(s) reviewed by me Assessment/Plan Assessment/Plan Impression: -Chest pain -Reported Hx of Ascending Aortic Aneurysm -Primary hypertension -Nicotine Dependence -questionable small-bowel obstruction partial -constipation Plan: Events: Nuclear stress test today -cardiology consultation placed -continue bowel regimen -Pain management -Cardiology Consult: Recommendations reviewed -Echocardiogram: Pending results -further course of management per Cardiology recommendations. Total time spent with patient discussing and formulating plan of care: 35 minute. This medical document was created using an electronic medical record system with [employer] dictation system. Although this document has been carefully reviewed, there may still be some phonetic and typographical errors. These areas are purely typographical due to imperfections of the software programs, and do not reflect any compromise in the patient's medical care. Plan discussed with: Patient, Other (RN) My Orders Orders - TYLER CAMPBELL NP Procedure Category Date Status Time Polyethylene Glycol PHA 11/30/24 In Process 17g Powder (Miralax 10:00 Date of Service: Nov 30, 2024 Billing Provider: TYLER CAMPBELL NP Common Visit Codes: [id number] INP/OBS CARE(HIGH) TYLER CAMPBELL NP Nov 30, 2024 09:53
--- NOTE | 2024-11-30 10:07 | DVHSR ---
APPROVED REPORT EXAM: LIMITED Two-dimensional and M-mode echocardiogram with Doppler and color Doppler. Blood Pressure: 124/85 mmHg INDICATION Chest Pain RISK FACTORS Height: 6'1, Weight: 250 DIMENSIONS LVDd4.6 (3.8-5.7cm)LA (2D) (1.9-4.0cm)Aortic Root4.0 (2.0-3.7cm) LVDs2.7 (2.5-4.0cm)LA (MM) (1.9-4.0cm)Aortic Cusp Exc2.4 (1.5-2.0cm) EF (%) 60.0 (55-70%)Rt. Atrium (1.9-4.0cm)Asc. Aorta4.0 cm IVSd1.0 (0.7-1.1cm)RV (D) (1.8-2.4cm) PWd0.8 (0.7-1.1cm) Mitral Valve MitralMitral Stenosis E wave0.85m/sMV Mean GR.mmHg A wave0.69m/sMV Peak GR.mmHg E/A ratio1.22D MVAcm2 DECEL [id number] 1/2 Tim[place] Aortic Valve Aortic ValveAortic Stenosis V10.97m/Cathie Mean GR.mmHg LVOT Diameter2.6 (1.8-2.4cm)Doppler AVA0.00cm2 Pulmonic Valve V20.81m/s Tricuspid Valve TR Velocity2.05m/s [id number] Other Information Technically limited study due to patient position.body habitus. Conclusion MILD LVH AND MILD LV DIASTOLIC DYSFUNCTION LV EF IS 65% NORMAL VALVES MODERATELY DILATED RV AND RA NO EFFUSION
--- NOTE | 2024-11-30 21:17 | DVHPN2 ---
Progress Note - Dictate Date Seen: Nov 30, 2024 Medical Necessity Reason Pt with a Central, PICC or Fol: No Subjective Patient was seen and evaluated in follow-up. No overnight events. Patient is undergoing cardiac stress test today. Telemetry reviewed. vital signs Vital Sign Date Time Temp Pulse Resp B/P (MAP) Pulse Ox O2 Delivery O2 Flow Rate FiO2 11/30/24 12:15 97.9 11/30/24 09:53 61 133/83 11/30/24 09:00 18 98 11/30/24 08:00 Room Air* 0 21 Total Intake and Output 11/29/24 11/29/24 11/30/24 15:00 23:00 07:00 Intake Total 900 ml 600 ml 946 ml Balance 900 ml 600 ml 946 ml medications Current Medications Medications Dose Ordered Sig/Ben Route Start Time Stop Time Status Last Admin Dose Admin Aspirin 81 mg DAILY PO 11/28/24 10:00 11/29/24 09:39 81 MG Valsartan 160 mg DAILY PO 11/28/24 10:00 11/29/24 09:38 160 MG Hydrochlorothiazide 12.5 mg DAILY PO 11/28/24 10:00 11/29/24 09:38 12.5 MG Metoprolol Succinate 25 mg DAILY PO 11/28/24 10:00 11/29/24 09:40 25 MG Ondansetron HCl 4 mg Q4HP PRN IV 11/27/24 19:30 Acetaminophen 650 mg Q6HP PRN PO 11/27/24 19:30 11/30/24 11:15 650 MG Nitroglycerin 0.4 mg Q5MINP PRN SL 11/27/24 19:30 11/29/24 02:23 0.4 MG Morphine Sulfate 2 mg Q30M PRN IV 11/27/24 19:30 Polyethylene Glycol 17 gm DAILY PO 11/30/24 10:00 Atorvastatin Calcium 20 mg HS PO 11/29/24 22:00 11/29/24 22:25 20 MG objective GENERAL: Alert and oriented x 3. No acute distress. EYES: PERRL, EOMI. Anicteric. HENT: Moist mucous membranes. LUNGS: Clear to auscultation bilaterally. CARDIOVASCULAR: Regular rate and rhythm. ABDOMEN: Soft, nontender and nondistended. EXTREMITIES: No edema. NEUROLOGIC: No focal neurological deficits. SKIN: Warm, dry. laboratory and microbiology Laboratory Tests 11/29/24 04:11 11/27/24 15:00 Test 11/29/24 04:11 Range/Units Serum Glucose 98 74-106 mg/dL Problem List Chest pain, rule out coronary artery disease. Rule out structural heart disease. Hypertension. Hyperlipidemia, newly diagnosed. Abdominal aortic aneurysm. Tobacco use. History of methamphetamine use. Obesity. Assessment/Plan Continued all current supportive medical care. Morphine and Tylenol for pain management. Additional plan as per the hospital course. Plan discussed with: Patient TATE MRAINA MD Nov 30, 2024 14:30
[2024-12-01] VITALS (12 sets, daily range): BP systolic 122–169; BP diastolic 73–112; PULSE 63–101; RESP 11–18; TEMP 97.7–99.6; O2SAT 94–100
--- NOTE | 2024-12-01 09:21 | ECG ---
[facility] Test Date: 2024-11-27 Test Time: 14:04:26 Pat Name: EUGENIO BASS Department: [facility] ED Room: 0212T B Gender: M Naturopathic Doctor: yoanna : 1975 Requested By: EMERGENCY EMERGENCY Order Number: [id number] Reading MD: Karl Marlow Measurements Intervals [place] Rate: 70 P: 56 VA: 166 QRS: -50 QRSD: 97 T: 61 QT: 414 QTc: 447 Interpretive Statements Sinus rhythm Anterolateral infarct, age indeterminate Baseline wander in lead(s) V1,V2,V3 Electronically Signed On 12-03-2024 18:37:18 PDT by Karl Marlow Please click the below link to view image of tracing.
--- NOTE | 2024-12-01 11:46 | DVHPN2 ---
Subjective Denies any chest pain Reviewed: Care Plan, H&P, Labs, Medications Changes from previous H/P or p: No Changes General: Per HPI Objective Vitals Vital Signs Date Time Temp Pulse Resp B/P (MAP) Pulse Ox O2 Delivery O2 Flow Rate FiO2 12/01/24 09:33 84 131/95 12/01/24 05:00 97.8 17 96 97.8 11/30/24 20:00 Room Air* 0 21 Intake/Output Intake and Output 12/01/24 07:00 Intake Total 1010 ml Balance 1010 ml Intake Oral 1010 ml # Voids 8 # Bowel Movements 1 General Appearance: Alert, Oriented X3, Cooperative HEENT: Atraumatic, PERRLA Lungs: Clear to auscultation, Normal air movement Cardiovascular: Normal S1, Normal S2 Abdomen: Normal bowel sounds, Soft, No tenderness Musculoskeletal: Normal sensory function, Normal motor function Skin: Dry, Intact Psych/Mental Status: Mental status NL, Mood NL Medications Current Medications Medications Dose Ordered Sig/Ben Route Start Time Stop Time Status Last Admin Dose Admin Aspirin 81 mg DAILY PO 11/28/24 10:00 12/01/24 09:33 81 MG Valsartan 160 mg DAILY PO 11/28/24 10:00 12/01/24 09:29 160 MG Hydrochlorothiazide 12.5 mg DAILY PO 11/28/24 10:00 12/01/24 09:31 12.5 MG Metoprolol Succinate 25 mg DAILY PO 11/28/24 10:00 12/01/24 09:33 25 MG Ondansetron HCl 4 mg Q4HP PRN IV 11/27/24 19:30 Acetaminophen 650 mg Q6HP PRN PO 11/27/24 19:30 12/01/24 05:32 650 MG Nitroglycerin 0.4 mg Q5MINP PRN SL 11/27/24 19:30 11/29/24 02:23 0.4 MG Morphine Sulfate 2 mg Q30M PRN IV 11/27/24 19:30 Polyethylene Glycol 17 gm DAILY PO 11/30/24 10:00 Atorvastatin Calcium 20 mg HS PO 11/29/24 22:00 11/30/24 21:55 20 MG Laboratory Results Laboratory Tests 11/27/24 15:00 11/29/24 04:11 Urinalysis Test 11/27/24 16:13 Urine Color Yellow (Yellow) Urine Clarity Clear (Clear) Urine pH 6.5 (5.0-9.0) Urine Specific [place] 1.035 (1.001-1.035) Urine Protein Trace (Negative) H Urine Ketones Negative (Negative) Urine Blood Negative /uL (Negative) Urine Nitrite Negative (Negative) Urine Bilirubin Negative (Negative) Urine Urobilinogen Normal mg/dL (Negative) Urine Leukocyte Esterase Negative /uL (Negative) Urine RBC 4 /hpf (0 - 3) Urine Microscopic WBC 1 /HPF (0-3) Urine Squamous Epithelial Cells Few /hpf (<5) Urine Bacteria None seen /hpf (None Seen) Urine Mucus Few (None Seen) Urine Glucose Normal mg/dL (Normal) Labs and/or images reviewed: Labs reviewed by me, Image(s) reviewed by me Assessment/Plan Assessment/Plan Impression: -Chest pain -Reported Hx of Ascending Aortic Aneurysm -Primary hypertension -Nicotine Dependence -questionable small-bowel obstruction partial -constipation Plan: Events: Pending results of stress test. Patient no longer with N/V, Positive BM -cardiology consultation placed -continue bowel regimen -Pain management -Cardiology Consult: Recommendations reviewed -Echocardiogram: Pending results -further course of management per Cardiology recommendations. Total time spent with patient discussing and formulating plan of care: 35 minute. This medical document was created using an electronic medical record system with [employer] dictation system. Although this document has been carefully reviewed, there may still be some phonetic and typographical errors. These areas are purely typographical due to imperfections of the software programs, and do not reflect any compromise in the patient's medical care. Plan discussed with: Patient, Other (RN) Date of Service: Dec 01, 2024 Billing Provider: TYLER CAMPBELL NP Common Visit Codes: [id number] INP/OBS CARE(HIGH) TYLER CAMPBELL NP Dec 01, 2024 11:46
--- NOTE | 2024-12-01 12:56 | DVHOP ---
DATE OF SURGERY: 11/29/2024 The patient underwent stress test done over here on 11/29/2024. The patient underwent resting scan followed by intravenous adenosine followed by the intravenous Cardiolite. Stress and rest images both have been compared. There is perfusion defect noted in the inferior wall which reverses on resting images noted on the short axis view. CONCLUSION: There is an inferior wall reversibility noted. Normal perfusion of the anterior wall, lateral wall and septal wall. Nunu Gray MD MP/ELDA/DAVONTE TID: [id number] RECEIPT: [id number]
[2024-12-01] MEDS: IODIXANOL 320MG/ML 100ML BTL IV ONE ×3 (15:31→17:49)
[2024-12-01] MEDS: SODIUM CHL 0.9% 50 ML ONE ×2 (16:04→16:35)
[2024-12-01] MEDS: MIDAZOLAM HCL 2MG/2ML 2ml VIAL (1mg/ml) ONE (16:04)
[2024-12-01] MEDS: ANGIOMAX 250 MG VIAL IV ONE ×2 (16:04→16:35)
[2024-12-01] MEDS: HEPARIN SODIUM (PORCINE) 5000 UNITS/ML 1ML VIAL ONE (16:04)
[2024-12-01] MEDS: VERAPAMIL 2.5MG/ML INJ 2ML VIAL IV ONE (16:04)
[2024-12-01] MEDS: LIDOCAINE 2%HCL (LOCAL ANESTH.) INJ 20ML MDV ONE (16:05)
[2024-12-01] MEDS: fentaNYL CITRATE 100 MCG/2 ML VL ONE (16:05)
[2024-12-01] MEDS: NITROGLYCERIN 50MG/250ML 250 ML IV ONE (16:08)
[2024-12-01] MEDS: HYDROmorphone HCL 2 MG/ML VL/or syr ONE (16:46)
[2024-12-01] MEDS: ATROPINE SULF 1 MG/10ml SYR ONE (16:51)
[2024-12-01] MEDS: NALOXONE HCL 0.4 MG/ML VIAL ONE (16:53)
[2024-12-01] MEDS: IOHEXOL 350 MG/ML 100ML IJ ONE (17:49)
[2024-12-01] MEDS: TICAGRELOR 90 MG TAB ONE (17:50)
[2024-12-01] MEDS: SODIUM CHLORIDE 0.9% 1,000 ML IV SCH (18:15)
--- NOTE | 2024-12-01 19:53 | DVHOP ---
DATE OF SURGERY: 12/01/2024 TECHNIQUE PERFORMED: * Ultrasound of the right radial artery. * Management of conscious sedation. * Ultrasound-guided insertion of a 6-Burmese arterial line in the right radial artery. * Left coronary artery angiography. * Balloon angioplasty of the left anterior descending artery with 3.0 x 20 mm length noncompliant balloon. * Stenting and angioplasty of the left anterior descending artery from proximal to mid region with 3.5 x 30 mm length Prasanna Beaufort stent of [place]. * Intravascular ultrasound of the left main and also the left anterior descending artery stented region. * The balloon angioplasty of the left anterior descending artery stent with 3.5 x 20 mm length noncompliant balloon and mid artery size to 3.65 plus a mm in size. COMPLICATIONS: None. ASSISTANTS: Assisted by Cheyanne Sage Josue and Angela. INDICATIONS: As follows: The patient has a critical 95% plus narrowing in the proximal region of the left anterior descending artery, 80% noted in the mid region of the left anterior descending artery and underlying acute coronary syndrome. DESCRIPTION OF PROCEDURE: Risks and benefits discussed in a standard manner. The patient was brought to director of cath lab urgently. The patient's right radial area thoroughly cleaned with soap and Betadine. A 6-Burmese arterial line was placed. The patient received intraarterial administration of nitroglycerin 100 mcg and 2.5 mg of verapamil, 2000 units of heparin and we have put XB 3.5 6-Burmese guiding catheter and the left coronary angiography was done. Subsequently, Angiomax was started and now we put down Whisper MS wire, we were able to go smoothly all the way to the distal region of the left anterior descending artery. Subsequently, now we put a balloon 3.0 x 20 mm length noncompliant balloon, taken up to 25 atmospheres. The size of the artery made to 3.25 mm in size in proximal and mid and distal region. Subsequently, we have put a stent 3.5 x 20 mm length Prasanna Beaufort stent of [place] and it was fully deployed. A total of 15 atmosphere, the stent size was increased up to 3.55 mm in size, inflated for 31 seconds and subsequently again for 31 seconds and balloon had been deflated. Now, subsequently, we did intravascular ultrasound. We found some minimum gap between the stent and media. Now, we have pulled a 3.5 x 20 mm length noncompliant balloon and the artery and it was taken up to 15 atmosphere. The whole artery from proximally and distally had been and I made the whole artery size up to 3.67 mm plus and subsequently now the angiography was done. Result was satisfactory. There was no complication. CONCLUSION: Prior to performing the procedure #1, the left anterior descending artery in the proximal region was 95% block. The mid region had about 80% block, DAMON grade 3 flow postprocedure. The residual stenosis is 0%. The artery is widely open proximally also in the middle region and there is no spasm, no dissection, no thrombosis with the procedure. The patient has done well. Nunu Gray MD MP/ABEL/CATRACHO TID: [id number] RECEIPT: [id number] MTDPuneet
--- NOTE | 2024-12-01 20:44 | DVHOP ---
DATE OF SURGERY: 12/01/2024 TECHNIQUES PERFORMED: * Emergency case. * Ultrasound of the radial artery. * Management of conscious sedation. * Ultrasound-guided insertion of 6-Kyrgyz arterial line into the radial artery. * Right coronary artery angiography. * Balloon angioplasty of the posterior descending artery, which is actually arising from mid region of the right coronary artery. Balloon angioplasty of the posterior descending artery with a 2.0 x 15 mm length semi-compliant balloon. * Stenting and angioplasty of the proximal to mid region of the posterior descending artery with 2.0 x 18 mm length Cameron Bath stent of [employer]-IT. COMPLICATIONS: None. ASSISTANTS: Assisted by Alona. Other assistants are Mitchell Diaz Francisco, Cheyanne, and Nivia. INDICATIONS: * This patient has underlying 99% narrowing of the posterior descending artery, long segment type C lesion. * Inferior wall reversible ischemia. DESCRIPTION OF PROCEDURE: Risks and benefits discussed in standard manner. The patient was brought to the laborer salvage. Risks and benefits discussed. Right radial area thoroughly cleaned with soap and Betadine. A 6-Kyrgyz arterial line was placed. The patient got 100 mcg of nitroglycerin, 2.5 mg of verapamil, 2000 units of heparin was given. Subsequently, now we put JL1 catheter, we put Whisper MS wire, which went in smoothly into the posterior descending artery arising from the mid region of the right coronary artery. Subsequently, we put 2.0 x 15 mm length semi-compliant balloon. Balloon angioplasty was done. Balloon had been discontinued. Subsequently, we put a 2.0 x 18 mm length Prasanna Bath stent deployed at total of 15 and 17 atmospheres. Stent size was increased to 2.3 mm in size. Increased by 13 atmospheres, subsequently for 21 seconds. Balloon had been deflated. Balloon had been discontinued. Procedure went very well without any complication. Balloon, wire, catheter, all had been discontinued. CONCLUSION: Prior to performing the procedure #1, the posterior descending artery from the proximal to the mid region was narrowed 99%. DAMON grade 2 flow, postprocedure DAMON grade 3 flow and the residual stenosis is 0%. Procedure went well. PLAN OF ACTION: Advised for aspirin, beta-anusha, Brilinta, and cholesterol-reducing medicine, and outpatient followup. Nunu Gray MD MP/LUKE TID: [id number] RECEIPT: [id number]
[2024-12-01] MEDS: ATORVASTATIN 20 MG TAB PO SCH (22:28)
[2024-12-01] MEDS: TICAGRELOR 90 MG TAB PO SCH (22:37)
--- NOTE | 2024-12-01 22:53 | DVHPN2 ---
Progress Note - Dictate Date Seen: Dec 01, 2024 Medical Necessity Reason Pt with a Central, PICC or Fol: No Subjective Patient was seen and evaluated in follow up. The patient underwent stress test done over here on 11/29/2024. The patient underwent resting scan followed by intravenous adenosine followed by the intravenous Cardiolite. Stress and rest images both have been compared. There is perfusion defect noted in the inferior wall which reverses on resting images noted on the short axis view. There is an inferior wall reversibility noted. Normal perfusion of the anterior wall, lateral wall and septal wall. Patient underwent emergency left coronary artery angiography, balloon angioplasty of the left anterior descending artery, stenting and angioplasty of the left anterior descending artery, balloon angioplasty of the left anterior descending artery stent, right coronary artery angiography, balloon angioplasty of the posterior descending artery, balloon angioplasty of the posterior descending artery, stenting and angioplasty of the proximal to mid region of the posterior descending artery. Patient is advised for aspirin, beta-anusha, Brilinta, and cholesterol-reducing medicine, and outpatient followup. Telemetry reviewed. vital signs Vital Sign Date Time Temp Pulse Resp B/P (MAP) Pulse Ox O2 Delivery O2 Flow Rate FiO2 12/01/24 09:33 84 131/95 12/01/24 05:00 97.8 17 96 97.8 11/30/24 20:00 Room Air* 0 21 Total Intake and Output 11/30/24 11/30/24 12/01/24 15:00 23:00 07:00 Intake Total 700 ml 310 ml Balance 700 ml 310 ml medications Current Medications Medications Dose Ordered Sig/Ben Route Start Time Stop Time Status Last Admin Dose Admin Aspirin 81 mg DAILY PO 11/28/24 10:12/01/24 09:33 81 MG Valsartan 160 mg DAILY PO 11/28/24 10:00 12/01/24 09:29 160 MG Hydrochlorothiazide 12.5 mg DAILY PO 11/28/24 10:00 12/01/24 09:31 12.5 MG Metoprolol Succinate 25 mg DAILY PO 11/28/24 10:12/01/24 09:33 25 MG Ondansetron HCl 4 mg Q4HP PRN IV 11/27/24 19:30 Acetaminophen 650 mg Q6HP PRN PO 11/27/24 19:30 12/01/24 05:32 650 MG Nitroglycerin 0.4 mg Q5MINP PRN SL 11/27/24 19:30 11/29/24 02:23 0.4 MG Morphine Sulfate 2 mg Q30M PRN IV 11/27/24 19:30 Polyethylene Glycol 17 gm DAILY PO 11/30/24 10:00 Atorvastatin Calcium 20 mg HS PO 11/29/24 22:00 11/30/24 21:55 20 MG objective GENERAL: Alert and oriented x 3. No acute distress. EYES: PERRL, EOMI. Anicteric. HENT: Moist mucous membranes. LUNGS: Clear to auscultation bilaterally. CARDIOVASCULAR: Regular rate and rhythm. ABDOMEN: Soft, nontender and nondistended. EXTREMITIES: No edema. NEUROLOGIC: No focal neurological deficits. SKIN: Warm, dry. laboratory and microbiology Laboratory Tests 11/29/24 04:11 11/27/24 15:00 Test 11/29/24 04:11 Range/Units Serum Glucose 98 74-106 mg/dL Problem List Chest pain, rule out coronary artery disease. Rule out structural heart disease. Hypertension. Hyperlipidemia, newly diagnosed. Abdominal aortic aneurysm. Tobacco use. History of methamphetamine use. Obesity. Assessment/Plan Continued all current supportive medical care. Aspirin. Metoprolol. Morphine and Tylenol for pain management. Additional plan as per the hospital course. Plan discussed with: Patient TATE MARINA MD Dec 01, 2024 12:09
[2024-12-02 01:00] VITALS: BP 139/81; PULSE 91; RESP 18; TEMP 100; O2SAT 95
[2024-12-02 05:00] VITALS: BP 141/84; PULSE 75; RESP 19; TEMP 98.6; O2SAT 93
[2024-12-02 07:30] LABS: Hematocrit 46.7 % (41.0-53.0); Hemoglobin 15.7 g/dL (13.5-17.5); Mean Corpuscular Hemoglobin 29.5 pg (28.0-32.0); Mean Corpuscular Volume 87.7 fL (80.0-100.0); Nucleated Red Blood Cells % 0.1 %
[2024-12-02 07:40] LABS: Anion Gap 9 (5-15); Carbon Dioxide 28 mmol/L (20-31); Chloride 103 mmol/L (98-107); Potassium 4.2 mmol/L (3.5-5.1); Sodium 140 mmol/L (136-145)
[2024-12-02 07:41] LABS: Calcium 8.9 mg/dL (8.7-10.4)
[2024-12-02 07:46] LABS: BUN/Creatinine Ratio 8.9 (10.0-20.0); Blood Urea Nitrogen 10 mg/dL (9-23); Glucose 90 mg/dL (74-106)
[2024-12-02 08:00] VITALS: PULSE 91; PULSE 93; RESP 18; O2SAT 98
[2024-12-02 09:00] VITALS: BP 147/86; PULSE 81; RESP 16; TEMP 98; O2SAT 91
[2024-12-02] MEDS ORDERED: VALS1TAB58 PO (11:05)
[2024-12-02] MEDS ORDERED: METO-6 PO (11:05)
[2024-12-02] MEDS ORDERED: TICA90TA PO (11:05)
[2024-12-02] MEDS ORDERED: ATOR40TA52 PO (11:05)
[2024-12-02] MEDS ORDERED: ASPI1TAB20 PO (11:05)
--- NOTE | 2024-12-02 11:12 | DVHDS2 ---
Discharge Summary Date of Admission Nov 27, 2024 at 19:26 Date of Discharge: Dec 02, 2024 Admitting Diagnosis Chest pain Labs/Diagnostic Data: Laboratory Results Test 12/02/24 06:39 11/29/24 04:11 11/27/24 16:13 11/27/24 15:51 White Blood Count 7.8 10^3/uL (4.4-10.8) Red Blood Count 5.33 10^6/uL (4.5-5.90) Hemoglobin 15.7 g/dL (13.5-17.5) Hematocrit 46.7 % (41.0-53.0) Mean Corpuscular Volume 87.7 fL (80.0-100.0) Mean Corpuscular Hemoglobin 29.5 pg (28.0-32.0) Mean Corpuscular Hemoglobin Concent 33.7 g/dL (32.0-36.0) Red Cell Distribution Width 13.9 % (11.8-14.3) Platelet Count 231 10^3/uL (140-450) Mean Platelet Volume 7.4 fL (6.9-10.8) Neutrophils (%) (Auto) 70.4 % (37.0-80.0) Lymphocytes (%) (Auto) 12.8 % (10.0-50.0) Monocytes (%) (Auto) 16.2 % (0.0-12.0) Eosinophils (%) (Auto) 0.4 % (0.0-7.0) Basophils (%) (Auto) 0.2 % (0.0-2.0) Neutrophils # (Auto) 5.5 10 ^3/uL (1.6-8.6) Lymphocytes # (Auto) 1.0 10 ^3/uL (0.4-5.4) Monocytes # (Auto) 1.3 10 ^3/uL (0-1.3) Eosinophils # (Auto) 0 10 ^3/uL (0-0.8) Basophils # (Auto) 0 10 ^3/uL (0-0.2) Nucleated Red Blood Cells 0.1 % Sodium Level 140 mmol/L (136-145) Potassium Level 4.2 mmol/L (3.5-5.1) Chloride Level 103 mmol/L (98-107) Carbon Dioxide Level 28 mmol/L (20-31) Anion Gap 9 (5-15) Blood Urea Nitrogen 10 mg/dL (9-23) Creatinine 1.12 mg/dL (0.700-1.30) Glomerular Filtration Rate Calc 80 mL/min (>90) BUN/Creatinine Ratio 8.9 (10.0-20.0) Serum Glucose 90 mg/dL (74-106) Calcium Level 8.9 mg/dL (8.7-10.4) Troponin I High Sensitivity 3 ng/L (</=54) Urine Color Yellow (Yellow) Urine Clarity Clear (Clear) Urine pH 6.5 (5.0-9.0) Urine Specific [place] 1.035 (1.001-1.035) Urine Protein Trace (Negative) Urine Ketones Negative (Negative) Urine Blood Negative /uL (Negative) Urine Nitrite Negative (Negative) Urine Bilirubin Negative (Negative) Urine Urobilinogen Normal mg/dL (Negative) Urine Leukocyte Esterase Negative /uL (Negative) Urine RBC 4 /hpf (0 - 3) Urine Microscopic WBC 1 /HPF (0-3) Urine Squamous Epithelial Cells Few /hpf (<5) Urine Bacteria None seen /hpf (None Seen) Urine Mucus Few (None Seen) Urine Glucose Normal mg/dL (Normal) Triglycerides Level 106 mg/dL (< 150) Cholesterol Level 169 mg/dL (< 200) LDL Cholesterol 116 mg/dL (< 100) HDL Cholesterol 46 mg/dL (40-59) Test 11/27/24 15:00 B-Type Natriuretic Peptide 5.35 pg/mL (0-100) Thyroid Stimulating Hormone (TSH) 1.45 uIU/mL (0.55-4.78) Other Laboratory Tests 12/02/24 06:39 Brief Hx & Hospital Course: History of Present Illness 49-year-old male presents for evaluation of chest pain. Patient reports a one day history of substernal nonradiating chest pressure with associated shortness for breath. She reports history of a AAA two years ago. No nausea or vomiting. No diaphoresis. Course of hospitalization: Given patient's reported history of AAA, further investigation was performed. Apparently, the patient was told he has an ascending aortic aneurysm. Patient had CT angiogram of the chest which did not reveal any aneurysm. Patient was noted to have some coronary calcifications. Cardiology consultation was obtained. Patient had positive stress test, subsequently undergoing left heart catheterization with findings of occlusions in both the LAD as well as PDA. Patient had PTCA and stent placement to both arteries. He has been loaded on dual antiplatelet therapy, and will be continued on both Brilinta and aspirin at the time of discharge. Patient was also found to be hypertensive, with Toprol- XL being titrated up as well as the patient being placed on Diovan. Patient will also be provided atorvastatin at the time of discharge. He will follow up with Dr. Mike Gray this following Thursday on 12/05/24. Patient was also instructed to obtain a PCP in this area. He is agreeable with discharge plan. All questions answered. Smoking cessation education: 20 minutes spent with the patient discussing the need to stop vaping. Physical examination General: Alert and Oriented x3. No acute distress. Well-nourished. Eyes: EOMI. Anicteric. HENT: Moist mucous membranes. Lungs: Clear to auscultation bilaterally. No accessory muscle use. Cardiovascular: Regular rate and rhythm. No murmur. No JVD. Abdomen: Soft, non-tender and non-distended. No palpable masses. Extremities: No edema. Non-tender. Skin: No rashes or lesions. Warm. Neurologic: No focal neurological deficits. CN II-XII grossly intact, but not individually tested. Psychiatric: Cooperative. Appropriate mood and affect. Total time spent with patient discussing and formulating plan of care: 35 minutes. This medical document was created using an electronic medical record system with [employer] dictation system. Although this document has been carefully reviewed, there may still be some phonetic and typographical errors. These areas are purely typographical due to imperfections of the software programs, and do not reflect any compromise in the patient's medical care. Consults/Reason for consult Cardiology: Acute coronary syndrome Operations or Procedures 12/01/2024: Left heart catheterization with PTCA and stent placement to PDA and LAD artery Condition at Discharge: Guarded Final Diagnosis/Problems List Acute coronary syndrome, with CAD found to PDA and LAD. Status post PTCA and stent placement Secondary diagnosis: -Reported Hx of Ascending Aortic Aneurysm : Ruled out -Primary hypertension -Nicotine Dependence -questionable small-bowel obstruction partial -constipation Discharge Disposition: Home Discharge Instruct/Medications Diet: Cardiac 2g Na,low cholest (2 gm sodium, low cholesterol) Activity: See Comment Activity comment: Do not lift anything greater than 5 lb with right wrist for two weeks Follow Up/Referral: Follow up with Dr. Gray this coming Thursday Medications: Atorvastatin 40 mg p.o. daily Brilinta 90 mg p.o. b.i.d. Aspirin 81 mg p.o. daily Diovan 160 mg p.o. daily Toprol-XL 50 mg p.o. daily Scheduled Aspirin (Aspir-81), 1 TAB PO DAILY Atorvastatin Calcium (Atorvastatin Calcium), 40 MG PO HS Metoprolol Succinate (Toprol Xl), 1 TAB PO DAILY Ticagrelor Base (Brilinta), 90 MG PO BID Valsartan (Valsartan), 160 MG PO DAILY 36 Discharge Statement: "Patient was advised to return to the ER or call 911 if any headaches, dizziness, shortness of breath, chest pain, abdominal pain, bleeding, fevers, or worsening of medical condition. Patient was counseled about treatment plan, medications, possible side effects, patientverbalized understanding. All questions were answered to the best of my ability. This discharge took greater then 30 minutes in planning, reviewing documentation, counseling the patient, and discussing with other team members." ASSESSMENT ASSESSMENT Assessment Date of Service: Dec 02, 2024 Billing Provider: TYLER CAMPBELL NP Common Visit Codes: 71288-SHB/[id number] DISCH DAY >30min Secondary Visit Codes: [id number] CHNG SMOKING >10MIN TYLER CAMPBELL NP Dec 02, 2024 11:12
--- NOTE | 2024-12-02 11:33 | DVHOP ---
DATE OF SURGERY: 12/01/2024 TECHNIQUES PERFORMED: * Emergency case. * Ultrasound of the right radial artery. * Management of conscious sedation. * Left heart catheterization. * Left ventriculogram. * Minto selective left and right coronary artery angiography. ASSISTANTS: Assisted by Oziel Sage Angela and Gail. INDICATION: As follows: The patient has carotid reversible ischemia noted in the inferior wall. Acute coronary syndrome. DESCRIPTION OF PROCEDURE: The procedure risks, benefits discussed in a standard manner. The patient had been brought to the lab[employer]. Risks, benefits, and alternatives all have been explained. The right radial area thoroughly cleaned with soap and Betadine and lidocaine was given. A 6-Hungarian arterial line. A TIG catheter 5-Hungarian 4-0 was passed and left coronary angio done. With the help of similar catheter, we also did the right coronary angiography. At the end of the procedure, we also with the help of a pigtail catheter complete left heart cath also had been done. The left ventriculogram was done in the right anterior oblique view, a total of 20 mL of dye. Post-LV gram, left ventricular angiography had been performed with the help of pull-through technique. Aortic pressure was also performed. J-wire was passed. The pigtail catheter also has been discontinued. IMPRESSION: * Normal left main. * Left anterior descending artery. It is from proximal into mid region have critical narrowing and the proximal narrowing is in the range of 95%. The mid region have a narrowing in the range of 80% DAMON grade 3 flow. * Circumflex and obtuse marginal artery are of moderate size and is normal. * The right coronary artery is a large luminal artery. The right coronary artery in the mid region also gives another posterior descending artery which is smaller as compared to the posterior descending artery which has critical 99% narrowing. * The ejection fraction of the left ventricle is in the range of 75%. PLAN OF ACTION: I advised the patient to undergo the coronary intervention of the left anterior descending artery and also the posterior descending artery arising from the right coronary artery. Nunu Gray MD MP/ROSSANA/[place] TID: [id number] RECEIPT: [id number] [facility]
[2024-12-02] MEDS: CLOPIDOGREL BISULFATE 75 MG TAB PO ONE (12:15)
[2024-12-02 12:30] VITALS: PULSE 93
[2024-12-02 12:46] VITALS: BP 132/88; PULSE 75; RESP 16; TEMP 97.7; O2SAT 96
--- NOTE | 2024-12-02 19:27 | DVHPN2 ---
Progress Note - Dictate Date Seen: Dec 02, 2024 Medical Necessity Reason Pt with a Central, PICC or Fol: No Subjective Patient was seen and evaluated in follow up. Patient has no new complaints at this time. Patient denies any cardiac symptoms. Patient is cardiac stable for discharge. Telemetry reviewed. vital signs Vital Sign Date Time Temp Pulse Resp B/P (MAP) Pulse Ox O2 Delivery O2 Flow Rate FiO2 12/02/24 11:12 133/96 12/02/24 11:03 79 12/02/24 09:00 98.0 16 91 98.0 12/02/24 08:00 Room Air* 0 21 Total Intake and Output 12/01/24 12/01/24 12/02/24 15:00 23:00 07:00 Intake Total 800 ml 1600 ml Output Total 1400 ml Balance 800 ml 200 ml medications Current Medications Medications Dose Ordered Sig/Ben Route Start Time Stop Time Status Last Admin Dose Admin Aspirin 81 mg DAILY PO 11/28/24 10:00 12/02/24 11:02 81 MG Valsartan 160 mg DAILY PO 11/28/24 10:00 12/02/24 11:12 160 MG Hydrochlorothiazide 12.5 mg DAILY PO 11/28/24 10:00 12/02/24 11:03 12.5 MG Metoprolol Succinate 25 mg DAILY PO 11/28/24 10:12/02/24 11:03 25 MG Ondansetron HCl 4 mg Q4HP PRN IV 11/27/24 19:30 Acetaminophen 650 mg Q6HP PRN PO 11/27/24 19:30 12/02/24 09:40 650 MG Nitroglycerin 0.4 mg Q5MINP PRN SL 11/27/24 19:30 11/29/24 02:23 0.4 MG Morphine Sulfate 2 mg Q30M PRN IV 11/27/24 19:30 Polyethylene Glycol 17 gm DAILY PO 11/30/24 10:00 Ticagrelor 90 mg BID PO 12/01/24 22:00 12/02/24 11:02 90 MG Atorvastatin Calcium 80 mg HS PO 12/01/24 22:00 12/01/24 22:28 80 MG objective GENERAL: Alert and oriented x 3. No acute distress. EYES: PERRL, EOMI. Anicteric. HENT: Moist mucous membranes. LUNGS: Clear to auscultation bilaterally. CARDIOVASCULAR: Regular rate and rhythm. ABDOMEN: Soft, nontender and nondistended. EXTREMITIES: No edema. NEUROLOGIC: No focal neurological deficits. SKIN: Warm, dry. laboratory and microbiology Laboratory Tests 12/02/24 06:39 Test 12/02/24 06:39 Range/Units Serum Glucose 90 74-106 mg/dL Problem List Chest pain, rule out coronary artery disease. Rule out structural heart disease. Hypertension. Hyperlipidemia, newly diagnosed. Abdominal aortic aneurysm. Tobacco use. History of methamphetamine use. Obesity. Assessment/Plan Continued all current supportive medical care. Aspirin, Brilinta. Metoprolol. Morphine and Tylenol for pain management. Additional plan as per the hospital course. Dietary Evaluation Review Comments: Monitor NPO intake, lab values, weight trend, and I/O Expected Outcomes/Goals: Intake to meet >75% estimated needs Fu 3-5 days Plan discussed with: Patient TATE MARINA MD Dec 02, 2024 12:12
== END 2024-12-02 13:04 | disposition home or self-care (01) | DRG 322 ==
LOC: EDBD 14:01 → ER 14:01 → OVERFLOW 19:26 → TELE-CENTR 11-28 23:52
PROVIDERS: ADMIT Nurse Practitioner Acute Care; ATTEND Nurse Practitioner Acute Care
PROC: 027135Z Dilation of Coronary Artery, Two Arteries with Two Drug-eluting Intraluminal Devices, Percutaneous Approach (ICD-10-PCS; principal; 2024-12-01)
PROC: 03HY32Z Insertion of Monitoring Device into Upper Artery, Percutaneous Approach (ICD-10-PCS; 2024-12-01)
PROC: B240ZZ3 Ultrasonography of Single Coronary Artery, Intravascular (ICD-10-PCS; 2024-12-01)
PROC: 4A023N7 Measurement of Cardiac Sampling and Pressure, Left Heart, Percutaneous Approach (ICD-10-PCS; 2024-12-01)
PROC: B211YZZ Fluoroscopy of Multiple Coronary Arteries using Other Contrast (ICD-10-PCS; 2024-12-01)
PROC: B215YZZ Fluoroscopy of Left Heart using Other Contrast (ICD-10-PCS; 2024-12-01)
DX: I25.10 Atherosclerotic heart disease of native coronary artery without angina pectoris (principal); I24.9 Acute ischemic heart disease, unspecified; K56.600 Partial intestinal obstruction, unspecified as to cause; I10 Essential (primary) hypertension; K59.00 Constipation, unspecified; E78.5 Hyperlipidemia, unspecified; E66.9 Obesity, unspecified; F17.210 Nicotine dependence, cigarettes, uncomplicated; Z88.0 Allergy status to penicillin; Z71.6 Tobacco abuse counseling; Z86.79 Personal history of other diseases of the circulatory system; Z68.32 Body mass index [BMI] 32.0-32.9, adult
CPT/HCPCS: 36415; 71045; 71275; 80048; 80061; 81001; 83880; 84443; 84484; 85025; 92928; 92929; 92978; 93005; 93017; 93306; 93458; 99152; 99291; C1874; G0378; J1885; J2250; Q9967

== ENCOUNTER 2025-02-04 21:35 | Inpatient (IN) | payer BC ==
[~2025-02-04] VITALS: Ht 180.3 cm; Wt 110.5 kg
[~2025-02-04 21:35] MED LIST: ASPI1TAB20 PO; ATOR40TA52 PO; METO-6 PO; TICA90TA PO; VALS1TAB58 PO
[2025-02-04] MEDS: fentaNYL CITRATE 100 MCG/2 ML VL IV ONE (22:00)
[2025-02-04] MEDS: ONDANSETRON HCL 4 MG/2 ML VIAL IV ONE (22:00)
[2025-02-04 22:18] LABS: Hematocrit 53.2 % (41.0-53.0); Hemoglobin 17.7 g/dL (13.5-17.5); Mean Corpuscular Hemoglobin 29.3 pg (28.0-32.0); Mean Corpuscular Volume 87.9 fL (80.0-100.0); Nucleated Red Blood Cells % 0.1 %
[2025-02-04 22:25] LABS: Chloride 101 mmol/L (98-107); Sodium 140 mmol/L (136-145)
[2025-02-04 22:26] LABS: Anion Gap 8 (5-15)
[2025-02-04 22:27] LABS: Calcium 9.7 mg/dL (8.7-10.4)
--- NOTE | 2025-02-04 22:27 | ED.PDOC ---
History of Present Illness HPI Comments 50 y/o obese M presents with c/c of diffused, upper abdominal burning discomfort and distension, nausea, back pain, and abnormal soft stool production. Significant history for AAA, CAD, HTN, hernia repair, and polysubstance abuse. Patient endorses on symptoms beginning today, unprovoked. Last normal bowel mo vement was yesterday. He comments on recent hospital admission on 11/27/24 for chest pain and being found with both LAD and PAD occlusion and requiring a PTCA and stent placement then. Additional, he reports last CT angiogram performed on 12/19/24 showing no signs of AAA. Denial of any further acute symptoms. Chief Complaint: Abdominal Pain Time Seen by MD: 22:00 Reviewed Notes: Nurses Notes, Medications, Allergies Allergies: Coded Allergies: Penicillins (Verified Allergy, Unknown, 11/27/24) Home Meds Active Scripts Atorvastatin Calcium (ATORVASTATIN CALCIUM) 40 Mg Tab, 40 MG PO HS for 30 Days, #30 TAB 3 Refills Prov:TYLER CAMPBELL BOAT TENDER 12/02/24 Valsartan (Valsartan) 160 Mg Tab, 160 MG PO DAILY for 30 Days, #30 TAB 2 Refills Prov:TYLER CAMPBELL BOAT TENDER 12/02/24 Metoprolol Succinate (Toprol Xl) 50 Mg Tab, 1 TAB PO DAILY, #30 TAB 5 Refills Prov:TYLER CAMPBELL BOAT TENDER 12/02/24 Ticagrelor Base (BRILINTA) 90 Mg Tab, 90 MG PO BID for 30 Days, #60 TAB 2 Refills Prov:TYLER CAMPBELL BOAT TENDER 12/02/24 Aspirin (Aspir-81) 81 Mg Tab, 1 TAB PO DAILY, #30 TAB 5 Refills Prov:TYLER CAMPBELL BOAT TENDER 12/02/24 Information Source: Patient Mode of Arrival: Ambulatory Severity: Moderate Timing: Hours Duration: Since onset Prehospital treatment: None Past Medical History PAST MEDICAL HISTORY: CAD, HIV Past Medical History (Other): AAA Surgical History: Hernia Repair, PTCA Surgical History (Other): stent placement Family History Family History: Unknown Social History Smoker: Cigarettes Alcohol: Occasionally Drugs: Marijuana Lives In: Home All Other Systems: Reviewed and Negative (Comprehensive systems review obtained and negative except for what is stated in the HPI.) Physical Exam General Appearance: No Apparent Distress, Obese HEENT: Normal ENT Inspection, Pharynx Normal, TMs Normal Neck: Full Range of Motion, Non-Tender, Normal, Normal Inspection Respiratory: Chest Non-Tender, Lungs Clear, No Accessory Muscle Use, No Respiratory Distress, Normal Breath Sounds Cardiovascular: No Edema, No JVD, No Murmur, No Gallop, Normal Peripheral Pulses, Regular Rate/Rhythm Breast Exam: Deferred Gastrointestinal: Distended, No Organomegaly, Non Tender (nontender to palpation), No Pulsatile Mass, Normal Bowel Sounds, Soft Genitalia: Deferred Pelvic: Deferred Rectal: Deferred Extremities: No calf tenderness, Normal capillary refill, Normal inspection, Normal range of motion, Non-tender, No pedal edema Musculoskeletal : Apperance: Normal Neurologic: Alert, group work program aide II-XII nml as Tested, No Motor Deficits, Normal Affect, Normal Mood, No Sensory Deficits Cerebellar Function: Normal Reflexes: Normal Skin: Dry, Normal Color, Warm Lymphatic: No Adenopathy Was a procedure done? Was a procedure done?: No Differential Dx Considerations may include: AAA, gastritis, gastroenteritis, GERD, PUD, cholelithiasis, cholecystitis, among others X-Ray, Labs, Meds, VS Vital Signs Date Time Temp Pulse Resp B/P (MAP) Pulse Ox O2 Delivery O2 Flow Rate FiO2 02/04/25 21:55 91 02/04/25 21:37 97.7 90 20 145/100 97 97.7 Lab Test 02/04/25 21:46 Range/Units White Blood Count 13.9 H 4.4-10.8 10^3/uL Red Blood Count 6.05 H 4.5-5.90 10^6/uL Hemoglobin 17.7 H 13.5-17.5 g/dL Hematocrit 53.2 H 41.0-53.0 % Mean Corpuscular Volume 87.9 80.0-100.0 fL Mean Corpuscular Hemoglobin 29.3 28.0-32.0 pg Mean Corpuscular Hemoglobin Concent 33.3 32.0-36.0 g/dL Red Cell Distribution Width 14.2 11.8-14.3 % Platelet Count 330 140-450 10^3/uL Mean Platelet Volume 7.2 6.9-10.8 fL Neutrophils (%) (Auto) 75.7 37.0-80.0 % Lymphocytes (%) (Auto) 16.2 10.0-50.0 % Monocytes (%) (Auto) 7.3 0.0-12.0 % Eosinophils (%) (Auto) 0.5 0.0-7.0 % Basophils (%) (Auto) 0.3 0.0-2.0 % Neutrophils # (Auto) 10.5 H 1.6-8.6 10 ^3/uL Lymphocytes # (Auto) 2.2 0.4-5.4 10 ^3/uL Monocytes # (Auto) 1.0 0-1.3 10 ^3/uL Eosinophils # (Auto) 0.1 0-0.8 10 ^3/uL Basophils # (Auto) 0 0-0.2 10 ^3/uL Nucleated Red Blood Cells 0.1 % Sodium Level 140 136-145 mmol/L Potassium Level 5.5 H 3.5-5.1 mmol/L Chloride Level 101 98-107 mmol/L Carbon Dioxide Level 31 20-31 mmol/L Anion Gap 8 5-15 Blood Urea Nitrogen 10 9-23 mg/dL Creatinine 1.04 0.700-1.30 mg/dL Glomerular Filtration Rate Calc 86 >90 mL/min BUN/Creatinine Ratio 9.6 L 10.0-20.0 Serum Glucose 121 H 74-106 mg/dL Calcium Level 9.7 8.7-10.4 mg/dL Lipase 40 12-53 U/L Time of 1ST Reevaluation: 22:30 Reevaluation 1ST: Unchanged Patient Education/Counseling: Diagnosis, Treatment, Prognosis, Need For Follow Up Family Education/Counseling: No Family Present Comments This is a patient who has a history of hernia repair presents with the abdominal pain abdominal distention nausea or vomiting. The top differential and concern was small-bowel obstruction. Other concerns include renal colic, pancreatitis, colitis, aortic aneurysm and dissection, gastritis, biliary colic. The workup reveals the patient does have small-bowel obstruction. He will receive an NG tube to decompress the gastric distention, receive IV fluids, pain control and nausea control. Patient will be admitted to the hospital surgery will be consulted he will be put on NPO Additional Information Previous history reviewed: November 27, 2024 for chest pain The following tests were ordered, and results were reviewed by me: CT abdomen/pelvis w/o contrast, UA, lipase, BMP, CBC, EKG Additional Information was gathered from interviewing the following independent historians: N/A I reviewed and agreed with the following test results read by other providers: CT abdomen/pelvis w/o contrast I discussed treatment and results with medical personnel and: patient SEPSIS Sepsis Screen Date sepsis recognized/suspect: Feb 04, 2025 Time Sepsis recognized/suspect: 2140 Recent Procedure: No On Antibiotic Therapy: No Respiratory Rate >20: No Heart Rate >90: No Temp<36 C (96.8 F) or >38.3 C: No SBP <90 or MAP <65 mmHG: No New Acute Mental Status Change: No Is the patient on CPAP, BIPAP,: No Physician Orders Electrocardigram (02/04/25 21:54) Electrocardigram (02/04/25 22:54) Electrocardigram (02/05/25 00:54) Urinalysis (02/04/25 22:00) Ct Ab Pel Wo Con-No Oral Or Iv (02/04/25 22:00) Sodium Chloride 0.9% (02/04/25 22:00) Ngt/Ogt (02/05/25 ) NS (02/05/25 00:15) Npo (Nothing By Mouth) Diet (02/05/25 Breakfast) Vital Signs Date Time Temp Pulse Resp B/P (MAP) Pulse Ox O2 Delivery O2 Flow Rate FiO2 02/04/25 21:55 91 02/04/25 21:37 97.7 90 20 145/100 97 97.7 Laboratory Tests Test 02/04/25 21:46 White Blood Count 13.9 10^3/uL (4.4-10.8) H Departure 1 Departure Time of Disposition: 00:11 Impression: Primary Impression: Small bowel obstruction Disposition: ADMITTED INPATIENT Admit to: Med Surg Condition: Serious Discharged With: Self Critical Care Note Critical Care Time?: No Stability Stability form required: No Heart Score Heart Score: Heart Score Response (Comments) Value History N/A 0 EKG N/A 0 Age N/A 0 Risk Factors N/A 0 Troponin N/A 0 Total 0 I personally scribed for AYANNA SAEED MD ([email or web address]) on 02/04/25 at 22:27. Electronically submitted by Alli West ([email or web address]). I personally scribed for AYANNA SAEED MD ([email or web address]) on 02/04/25 at 22:36. Electronically submitted by Alli West ([email or web address]). AYANNA SAEED MD Feb 04, 2025 22:27
[2025-02-04 22:31] LABS: BUN/Creatinine Ratio 9.6 (10.0-20.0); Blood Urea Nitrogen 10 mg/dL (9-23)
[2025-02-04 22:32] LABS: Lipase 40 U/L (12-53)
[2025-02-04 22:40] LABS: Carbon Dioxide 31 mmol/L (20-31); Glucose 121 mg/dL (74-106); Potassium 5.5 mmol/L (3.5-5.1)
--- NOTE | 2025-02-04 23:34 | DVH ---
EXAM: CT CT AB PEL WO CON-NO ORAL OR IV History: r/o sbo. Pain. Comparison Study: None TECHNIQUE: Multidetector spiral CT of the abdomen was performed from lung bases to pubic symphysis. Imaging was performed without IV contrast. Axial, coronal and sagittal multiplanar reformats were obtained from the axial data set by the technologist. Radiation Dose : 1. Abdomen/Pelvis: CTDIvol 17.77 mGy, DLP 1134.69 mGy*cm. FINDINGS: Evaluation of solid organs is limited due to lack of intravenous contrast use. Lung Bases: No acute or significant lung base finding. Normal heart size. No pleural or pericardial effusion. Liver: The liver is normal in size. No focal lesions. Gallbladder and Biliary Tree: Unremarkable Spleen: Unremarkable Pancreas: The pancreas is grossly normal in appearance. Adrenal Glands: Unremarkable Kidneys: Kidneys are grossly normal without calculi or hydronephrosis. Bladder: Grossly unremarkable for degree of distention. Bowel: Fluid-filled distention of the proximal and mid small bowel as well as the stomach with small-bowel loops measuring up to 4.0 cm. Transition difficult to visualize but likely in the right lower quadrant near the distal ileum, presumably related to an adhesive band. No free air or focal fluid collections. Ascites: Absent Lymphadenopathy: No mesenteric, retroperitoneal or periportal lymphadenopathy. Abdominal Wall and Mesentery: Unremarkable. Vasculature: The visualized abdominal aorta is normal in size and caliber. Evaluation of abdominal and pelvic vessels is limited due to lack of intravenous contrast. Pelvic Organs: Unremarkable Musculoskeletal: No aggressive focal bony lesions, acute fractures or dislocation. IMPRESSION: Fairly high-grade distal small-bowel obstruction with transition difficult to visualized but suspected in the right lower quadrant, likely related to an adhesive band. Radiation optimization: All CT scans at this facility use at least one of these dose optimization techniques: automated exposure control mA and/or kV adjustment per patient size (includes targeted exams where dose is matched to clinical indication) or iterative reconstruction.
[2025-02-05 01:15] VITALS: PULSE 88; O2SAT 95
[2025-02-05] MEDS: SODIUM CHLORIDE 0.9% 1,000 ML IV ONE ×2 (02:23→02:25)
--- NOTE | 2025-02-05 02:44 | DVH ---
CHEST RADIOGRAPH INDICATION: NG TUBE CHECK PLACEMENT TECHNIQUE: Single frontal view of the chest was obtained COMPARISON: XY CHEST PORTABLE on DOS: 11/27/24 IMPRESSION: Heart appears normal in size. The lungs appear clear without focal airspace opacity, effusion, or pneumothorax. Enteric tube tip in the region of the stomach.
[2025-02-05] MEDS: PANTOPRAZOLE 40 MG/10 ML VIAL INJ IV ONE (03:27)
[2025-02-05 03:35] LABS: Alanine Aminotransferase 16.0 U/L (7-40); Albumin 4.0 g/dL (3.2-4.8); Alkaline Phosphatase 81.0 U/L (46-116); Bilirubin, Direct 0.3 mg/dL (<0.3); Bilirubin, Total 0.9 mg/dL (0.2-1.0); Potassium 4.9 mmol/L (3.5-5.1); Total Protein 6.6 g/dL (5.7-8.2)
[2025-02-05 03:38] LABS: INR 1.14 (0.9-1.15); Partial Thromboplastin Time 29.9 SEC (24.5-34.5); Prothrombin Time 11.9 sec (9.3-11.8)
--- NOTE | 2025-02-05 04:20 | DVHINCON2 ---
Date of service: Feb 05, 2025 History of Present Illness 50-year-old male with a history of CAD status post stents done three months ago admitted secondary to abdominal pain and nausea and vomiting that began yes terday. Patient denies any fevers or chills. Past Medical History CAD. Hypertension. HIV Past Surgical History Ventral hernia repair with mesh. Left inguinal hernia repair Family History: Patient reports no known family medical history. Family History Noncontributory Social History Vapes. Denies any alcohol or IV drug use Allergies: Coded Allergies: Penicillins (Verified Allergy, Unknown, 11/27/24) Home Meds Active Scripts Atorvastatin Calcium (ATORVASTATIN CALCIUM) 40 Mg Tab, 40 MG PO HS for 30 Days, #30 TAB 3 Refills Prov:TYLER CAMPBELL WATER TECHNICIAN 12/02/24 Valsartan (Valsartan) 160 Mg Tab, 160 MG PO DAILY for 30 Days, #30 TAB 2 Refills Prov:TYLER CAMPBELL WATER TECHNICIAN 12/02/24 Metoprolol Succinate (Toprol Xl) 50 Mg Tab, 1 TAB PO DAILY, #30 TAB 5 Refills Prov:TYELR CAMPBELL WATER TECHNICIAN 12/02/24 Ticagrelor Base (BRILINTA) 90 Mg Tab, 90 MG PO BID for 30 Days, #60 TAB 2 Refills Prov:TYLER CAMPBELL NP 12/02/24 Aspirin (Aspir-81) 81 Mg Tab, 1 TAB PO DAILY, #30 TAB 5 Refills Prov:TYLER CAMPBELL WATER TECHNICIAN 12/02/24 Current Medications Current Medications Medications (Trade) Dose Ordered Sig/Ben Route PRN Reason Start Time Stop Time Status Last Admin Pantoprazole Sodium (Protonix) 40 mg DAILY IV 02/05/25 10:00 Ondansetron HCl (Zofran) 4 mg Q6HPRN PRN IV NAUSEA / VOMITING 02/05/25 03:00 Aspirin 300 mg DAILY SC 02/05/25 10:00 Labetalol HCl (Labetalol HCl) 10 mg Q2HPRN PRN IV SBP>150 02/05/25 03:00 Vital Signs Vital Signs Date Time Temp Pulse Resp B/P (MAP) Pulse Ox O2 Delivery O2 Flow Rate FiO2 02/05/25 04:00 84 19 130/88 (102) 96 02/05/25 00:10 97.9 97.9 Physical Exam GEN: Age-appropriate male in no acute distress. Alert. NG tube to low intermittent suction HEENT: Normocephalic atraumatic. Moist mucous membranes. Anicteric sclerae. NG tube intact CV: RRR Respiratory: CTAB ABD: Well-healed midline incisional scar from his previous hernia repair. Abdomen is soft. Currently nontender and nondistended. CT of the abdomen and pelvis: distal small-bowel obstruction. Labs/Diagnostic Data Labs Test 02/05/25 03:10 02/04/25 21:46 Range/Units Prothrombin Time 11.9 H 9.3-11.8 sec Prothrombin Time INR 1.14 0.9-1.15 Activated Partial Thromboplast Time 29.9 24.5-34.5 SEC Potassium Level 4.9 3.5-5.1 mmol/L Lactic Acid Level 1.3 0.4-2.0 mmol/L Total Bilirubin 0.9 0.2-1.0 mg/dL Direct Bilirubin 0.3 <0.3 mg/dL Aspartate Amino Transferase (AST) 14 13-40 U/L Alanine Aminotransferase (ALT) 16 7-40 U/L Alkaline Phosphatase 81 46-116 U/L Total Protein 6.6 5.7-8.2 g/dL Albumin 4.0 3.2-4.8 g/dL White Blood Count 13.9 H 4.4-10.8 10^3/uL Red Blood Count 6.05 H 4.5-5.90 10^6/uL Hemoglobin 17.7 H 13.5-17.5 g/dL Hematocrit 53.2 H 41.0-53.0 % Mean Corpuscular Volume 87.9 80.0-100.0 fL Mean Corpuscular Hemoglobin 29.3 28.0-32.0 pg Mean Corpuscular Hemoglobin Concent 33.3 32.0-36.0 g/dL Red Cell Distribution Width 14.2 11.8-14.3 % Platelet Count 330 140-450 10^3/uL Mean Platelet Volume 7.2 6.9-10.8 fL Neutrophils (%) (Auto) 75.7 37.0-80.0 % Lymphocytes (%) (Auto) 16.2 10.0-50.0 % Monocytes (%) (Auto) 7.3 0.0-12.0 % Eosinophils (%) (Auto) 0.5 0.0-7.0 % Basophils (%) (Auto) 0.3 0.0-2.0 % Neutrophils # (Auto) 10.5 H 1.6-8.6 10 ^3/uL Lymphocytes # (Auto) 2.2 0.4-5.4 10 ^3/uL Monocytes # (Auto) 1.0 0-1.3 10 ^3/uL Eosinophils # (Auto) 0.1 0-0.8 10 ^3/uL Basophils # (Auto) 0 0-0.2 10 ^3/uL Nucleated Red Blood Cells 0.1 % Sodium Level 140 136-145 mmol/L Chloride Level 101 98-107 mmol/L Carbon Dioxide Level 31 20-31 mmol/L Anion Gap 8 5-15 Blood Urea Nitrogen 10 9-23 mg/dL Creatinine 1.04 0.700-1.30 mg/dL Glomerular Filtration Rate Calc 86 >90 mL/min BUN/Creatinine Ratio 9.6 L 10.0-20.0 Serum Glucose 121 H 74-106 mg/dL Calcium Level 9.7 8.7-10.4 mg/dL Lipase 40 12-53 U/L Assessment 1. SBO Plan/Recommendation 1. Continue with NG tube decompression and IV fluid resuscitation 2. Small-bowel follow-through with Gastrografin Plan discussed with: Patient SOHAIL FERRARI MD Feb 05, 2025 04:19
[2025-02-05] MEDS: SODIUM CHLORIDE 0.9% 1,000 ML IV SCH (06:53)
--- NOTE | 2025-02-05 07:57 | DVHHPRES ---
History of Present Illness Resident Creating Document: JOSELYN PICKARD RESIDENT History of Present Illness Patient is a 50-year-old male presented to the hospital with a chief complaint of intractable abdominal pain and nausea for about 1-1/2 days prior to admission. Patient was apparently well until and on Thursday morning started to have abdominal pain associated with nausea. Patient was not able to tolerate anything oral, denied any bowel movements or passing flatus. Abdominal pain got worse following which he came to the hospital for further evaluation. In the ED CT abdomen pelvis was done which showed fairly high-grade distal SBO. Patient has a significant medical history of coronary artery disease s/p 2 JOSSUE placed in November 2024. Past medical history: Coronary artery disease s/p 2 JOSSUE, thoracic aortic aneury sm, hypertension, polysubstance use Surgical history: Ventral/periumbilical hernia repair in 2015, left inguinal hernia 20 years ago Social history: Patient denies smoking, alcohol, drug use Home medications: Aspirin, Brilinta, valsartan, metoprolol succinate, atorvastatin Review of Systems Review of Systems Reports abdominal pain is better but still has pain No nausea of vomiting since NG to LIS No chest pain, shortness of breath Allergies: Coded Allergies: Penicillins (Verified Allergy, Unknown, 11/27/24) Medications Current Medications Medications Dose Ordered Sig/Ben Route Start Time Stop Time Status Last Admin Dose Admin Pantoprazole Sodium 40 mg DAILY IV 02/05/25 10:00 Ondansetron HCl 4 mg Q6HPRN PRN IV 02/05/25 03:00 Aspirin 300 mg DAILY MI 02/05/25 10:00 Future Hold Labetalol HCl 10 mg Q2HPRN PRN IV 02/05/25 03:00 Sodium Chloride 1,000 ml @ 100 mls/hr Q10H IV 02/05/25 06:45 02/05/25 06:53 100 MLS/HR Exam Vital Signs Vital Signs Date Time Temp Pulse Resp B/P (MAP) Pulse Ox O2 Delivery O2 Flow Rate FiO2 02/05/25 04:00 84 02/05/25 04:00 19 130/88 (102) 96 02/05/25 01:15 Room Air* 0 21 02/05/25 00:10 97.9 97.9 Exam Skin - Patients skin is warm and dry. HEENT - normocephalic, atraumatic, moist mucous membranes, no scleral icterus, no conjunctival pallor. Neck - full ROM, no LAD, no JVD Pulmonary - B/L clear breath sounds without any wheezing, rales or stridor cardiovascular - regular S1,S2 heard, no added sounds, no murmurs heard. peripheral pulses normal radial 2+, pedal 2+. No extremity edema GI - soft abdomen with mild tenderness diffuse. no hepatospleenomegaly. Bowel sounds hypoactive Neurological - Patient is A/O X 4 . Bilateral upper extremity strength 5/5, bilateral lower extremity strength 5/5, no facial droop, normal speech, no tremor, no sensory deficiets. Labs/Xrays Labs Test 02/05/25 03:10 02/04/25 21:46 Range/Units Prothrombin Time 11.9 H 9.3-11.8 sec Prothrombin Time INR 1.14 0.9-1.15 Activated Partial Thromboplast Time 29.9 24.5-34.5 SEC Potassium Level 4.9 3.5-5.1 mmol/L Lactic Acid Level 1.3 0.4-2.0 mmol/L Magnesium Level 2.4 1.6-2.6 mg/dL Total Bilirubin 0.9 0.2-1.0 mg/dL Direct Bilirubin 0.3 <0.3 mg/dL Aspartate Amino Transferase (AST) 14 13-40 U/L Alanine Aminotransferase (ALT) 16 7-40 U/L Alkaline Phosphatase 81 46-116 U/L Total Protein 6.6 5.7-8.2 g/dL Albumin 4.0 3.2-4.8 g/dL White Blood Count 13.9 H 4.4-10.8 10^3/uL Red Blood Count 6.05 H 4.5-5.90 10^6/uL Hemoglobin 17.7 H 13.5-17.5 g/dL Hematocrit 53.2 H 41.0-53.0 % Mean Corpuscular Volume 87.9 80.0-100.0 fL Mean Corpuscular Hemoglobin 29.3 28.0-32.0 pg Mean Corpuscular Hemoglobin Concent 33.3 32.0-36.0 g/dL Red Cell Distribution Width 14.2 11.8-14.3 % Platelet Count 330 140-450 10^3/uL Mean Platelet Volume 7.2 6.9-10.8 fL Neutrophils (%) (Auto) 75.7 37.0-80.0 % Lymphocytes (%) (Auto) 16.2 10.0-50.0 % Monocytes (%) (Auto) 7.3 0.0-12.0 % Eosinophils (%) (Auto) 0.5 0.0-7.0 % Basophils (%) (Auto) 0.3 0.0-2.0 % Neutrophils # (Auto) 10.5 H 1.6-8.6 10 ^3/uL Lymphocytes # (Auto) 2.2 0.4-5.4 10 ^3/uL Monocytes # (Auto) 1.0 0-1.3 10 ^3/uL Eosinophils # (Auto) 0.1 0-0.8 10 ^3/uL Basophils # (Auto) 0 0-0.2 10 ^3/uL Nucleated Red Blood Cells 0.1 % Sodium Level 140 136-145 mmol/L Chloride Level 101 98-107 mmol/L Carbon Dioxide Level 31 20-31 mmol/L Anion Gap 8 5-15 Blood Urea Nitrogen 10 9-23 mg/dL Creatinine 1.04 0.700-1.30 mg/dL Glomerular Filtration Rate Calc 86 >90 mL/min BUN/Creatinine Ratio 9.6 L 10.0-20.0 Serum Glucose 121 H 74-106 mg/dL Calcium Level 9.7 8.7-10.4 mg/dL Lipase 40 12-53 U/L SEPSIS Sepsis Screen Date sepsis recognized/suspect: Feb 05, 2025 Time Sepsis recognized/suspect: 0115 Recent Procedure: No On Antibiotic Therapy: No Respiratory Rate >20: No Heart Rate >90: No Temp<36 C (96.8 F) or >38.3 C: No SBP <90 or MAP <65 mmHG: No New Acute Mental Status Change: No Is the patient on CPAP, BIPAP,: No Physician Orders Ngt/Ogt (02/05/25 ) Npo (Nothing By Mouth) Diet (02/05/25 Breakfast) Chest Xray 1 View (02/05/25 01:16) Admit (02/05/25 02:50) Oxygen By Nasal Cannula (02/05/25 02:50) Stat Ekg For Chest Pain (02/05/25 02:50) Notify Of Changes From Base (02/05/25 02:50) Blade Changer For 24 Hours (02/05/25 02:50) Emergency Dysrhythmia Protocol (02/05/25 02:50) * Surgical Consult (02/05/25 ) Pantoprazole (Protonix) (02/05/25 10:00) Ondansetron Hcl (Zofran) (02/05/25 03:00) Drug Screen (02/05/25 02:50) Aspirin Suppository (02/05/25 10:00) Labetalol Hcl (Labetalol Hcl) (02/05/25 03:00) Ng To Lis (02/05/25 06:33) Sodium Chloride 0.9% (02/05/25 06:45) Small Bowel Series-W Gastrogra (02/05/25 06:33) Vital Signs Date Time Temp Pulse Resp B/P (MAP) Pulse Ox O2 Delivery O2 Flow Rate FiO2 02/05/25 04:00 84 02/05/25 04:00 84 19 130/88 (102) 96 02/05/25 03:00 87 12 123/90 (101) 93 02/05/25 02:00 83 15 118/74 (89) 93 02/05/25 01:15 88 95 Room Air* 0 21 02/05/25 01:00 88 22 134/92 (106) 94 02/05/25 00:10 97.9 84 14 140/95 (110) 95 97.9 Laboratory Tests Test 02/04/25 21:46 02/05/25 03:10 White Blood Count 13.9 10^3/uL (4.4-10.8) H Lactic Acid Level 1.3 mmol/L (0.4-2.0) Medications Medications Dose Ordered Sig/Ben Route Start Time Stop Time Status Last Admin Dose Admin Pantoprazole Sodium 40 mg ONCE ONCE IV 02/05/25 03:00 02/05/25 03:07 DC 02/05/25 03:27 40 MG Sodium Chloride 1,000 ml @ 100 mls/hr Q10H IV 02/05/25 06:45 02/05/25 06:53 100 MLS/HR Sodium Chloride 1,000 ml @ 100 mls/hr Q10H ONCE IV 02/04/25 22:00 02/05/25 06:37 DC 02/05/25 02:23 100 MLS/HR Sodium Chloride 1,000 ml @ 1,000 mls/hr Q1H ONCE IV 02/05/25 00:15 02/05/25 01:14 DC 02/05/25 02:25 1,000 MLS/HR Assessment/Plan Assessment/Plan Small-bowel obstruction h/o coronary artery disease status post JOSSUE less than 3 months ago Hypertensive heart disease Plan - Gastrografin small-bowel series today - NPO with the NG to LIS - since patient had PCI less than 3 months ago, DAPT currently held because of NPO , high-risk for in stent thrombosis ( resume after surgery , if no surgery plan to be discussed with the surgeon) - IV fluids Goals of care discussed with the patient for over 18 minutes. Full code Time spent: 36 minutes Plan discussed with Dr. Rincon Plan discussed with: Patient, Other (RN) My Orders Orders - JOSELYN PICKARD RESIDENT Procedure Category Date Status Time Admit ADMIT 02/05/25 Transmitted 02:50 Oxygen By Nasal RT 02/05/25 Transmitted Cannula 02:50 Stat Ekg For Chest [facility] 02/05/25 In Process Pain 02:50 Notify Md Of Changes [facility] 02/05/25 In Process From Base 02:50 Blade Changer For STEFANIA 02/05/25 In Process 24 Hours 02:50 Emergency Dysrhythmia [facility] 02/05/25 In Process Protocol 02:50 * Surgical Consult CONS 02/05/25 Transmitted Pantoprazole PHA 02/05/25 In Process (Protonix) 10:00 Ondansetron Hcl PHA 02/05/25 In Process (Zofran) 03:00 Drug Screen LAB 02/05/25 Logged 02:50 Aspirin Suppository PHA 02/05/25 In Process 10:00 Labetalol Hcl PHA 02/05/25 In Process (Labetalol Hcl) 03:00 Ng To Lis [facility] 02/05/25 In Process 06:33 Sodium Chloride 0.9% PHA 02/05/25 In Process 06:45 Small Bowel Series-W XY 02/05/25 Logged Gastrogra 06:33 Visit Coding STANDARD RES Billing Provider: KEN RINCON MD Date of Service if different f: Feb 05, 2025 Common Visit Codes: [id number] INP/OBS CARE (HIGH) Secondary Visit Codes: [id number] CARE PLAN 30 MINUTES JOSELYN PICKARD RESIDENT Feb 05, 2025 07:57
[2025-02-05] MEDS: GASTROGRAFIN 120 ML SOL ONE (08:16)
[2025-02-05 09:29] LABS: Urine Protein, UAD TRACE (Negative)
[2025-02-05 10:18] LABS: Amphetamine Screen, Urine Pos (NEGATIVE); Barbiturate Scree,Urine Neg (NEGATIVE); Benzodiazephine Screen, Urine Neg (NEGATIVE); Cannabinoid Screen, Urine Pos (NEGATIVE); Cocaine Screen, Urine Neg (NEGATIVE); Opiate Scree,Urine Neg (NEGATIVE); Phencyclidine Screen, Urine Neg (NEGATIVE)
[2025-02-05] MEDS: PANTOPRAZOLE 40 MG/10 ML VIAL INJ IV SCH (10:19)
--- NOTE | 2025-02-05 11:07 | DVH ---
PROCEDURE: XY SMALL BOWEL SERIES-W GASTROGRA Reason for study/Clinical History: SBO Comparison Study: None TECHNIQUE: Single contrast small bowel series performed. FINDINGS/IMPRESSION: Initial lead project engineer view of the abdomen and pelvis appears demonstrates no acute process. Contrast is identified within the colon by 2 hours. This represents a normal small bowel transit time.
[2025-02-05 11:35] VITALS: PULSE 97; RESP 14; O2SAT 97
--- NOTE | 2025-02-05 15:56 | DVHPN2 ---
Reviewed: H&P Changes from previous H/P or p: No Changes General: Per HPI Objective Vitals Vital Signs Date Time Temp Pulse Resp B/P (MAP) Pulse Ox O2 Delivery O2 Flow Rate FiO2 02/05/25 14:00 97.3 71 14 104/66 (79) 96 97.3 02/05/25 11:35 Room Air* 0 21 Intake/Output Intake and Output 02/05/25 07:00 Intake Total 1300 ml Balance 1300 ml Intake IV Total 1300 ml Exam Skin - Patients skin is warm and dry. HEENT - normocephalic, atraumatic, moist mucous membranes, no scleral icterus, no conjunctival pallor. Neck - full ROM, no LAD, no JVD Pulmonary - B/L clear breath sounds without any wheezing, rales or stridor cardiovascular - regular S1,S2 heard, no added sounds, no murmurs heard. peripheral pulses normal radial 2+, pedal 2+. No extremity edema GI - soft abdomen with mild tenderness diffuse. no hepatospleenomegaly. Bowel sounds hypoactive Neurological - Patient is A/O X 4 . Bilateral upper extremity strength 5/5, bilateral lower extremity strength 5/5, no facial droop, normal speech, no tremor, no sensory deficiets. Medications Current Medications Medications Dose Ordered Sig/Ben Route Start Time Stop Time Status Last Admin Dose Admin Pantoprazole Sodium 40 mg DAILY IV 02/05/25 10:00 02/05/25 10:19 40 MG Ondansetron HCl 4 mg Q6HPRN PRN IV 02/05/25 03:00 Labetalol HCl 10 mg Q2HPRN PRN IV 02/05/25 03:00 Sodium Chloride 1,000 ml @ 100 mls/hr Q10H IV 02/05/25 06:45 02/05/25 06:53 100 MLS/HR Ceftriaxone Sodium 50 ml @ 100 mls/hr DAILY@09 IV 02/05/25 09:00 02/05/25 10:19 100 MLS/HR Laboratory Results Laboratory Tests 02/04/25 21:46 02/05/25 03:10 Chemistry Test 02/04/25 21:46 02/05/25 03:10 Calcium Level 9.7 mg/dL (8.7-10.4) Albumin 4.0 g/dL (3.2-4.8) Magnesium Level 2.4 mg/dL (1.6-2.6) Total Protein 6.6 g/dL (5.7-8.2) Coagulation Test 02/05/25 03:10 Prothrombin Time 11.9 sec (9.3-11.8) H Prothrombin Time INR 1.14 (0.9-1.15) Activated Partial Thromboplast Time 29.9 SEC (24.5-34.5) Lipid panel Test 02/04/25 21:46 Lipase 40 U/L (12-53) LFT Test 02/05/25 03:10 Alanine Aminotransferase (ALT) 16 U/L (7-40) Alkaline Phosphatase 81 U/L (46-116) Aspartate Amino Transferase (AST) 14 U/L (13-40) Direct Bilirubin 0.3 mg/dL (<0.3) Total Bilirubin 0.9 mg/dL (0.2-1.0) Urinalysis Test 02/05/25 09:20 Urine Color Yellow (Yellow) Urine Clarity Clear (Clear) Urine pH 7.0 (5.0-9.0) Urine Specific [place] 1.027 (1.001-1.035) Urine Protein Trace (Negative) H Urine Ketones Negative (Negative) Urine Blood Negative /uL (Negative) Urine Nitrite Negative (Negative) Urine Bilirubin Negative (Negative) Urine Urobilinogen Normal mg/dL (Negative) Urine Leukocyte Esterase Negative /uL (Negative) Urine RBC 2 /hpf (0 - 3) Urine Microscopic WBC 1 /HPF (0-3) Urine Squamous Epithelial Cells Few /hpf (<5) Urine Bacteria None seen /hpf (None Seen) Urine Mucus Few (None Seen) Urine Glucose Normal mg/dL (Normal) Labs and/or images reviewed: Labs reviewed by me, Image(s) reviewed by me Assessment/Plan Assessment/Plan 50-year-old male presented to the hospital with a chief complaint of intractable abdominal pain and nausea for about 1-1/2 days prior to admission. Patient was apparently well until and on Thursday morning started to have abdominal pain associated with nausea. Patient was not able to tolerate anything oral, denied any bowel movements or passing flatus. Abdominal pain got worse following which he came to the hospital for further evaluation. In the ED CT abdomen pelvis was done which showed fairly high-grade distal SBO. Patient has a significant medical history of coronary artery disease s/p 2 JOSSUE placed in November 2024. -Past medical history: Coronary artery disease s/p 2 JOSSUE, thoracic aortic aneurysm, hypertension, polysubstance use 02/05: here for abd pain, CT found SBO, has hx of hernia repair, likely fibrosis cauing SBO. surgery consulting. SB series looks like contrast passing into colon. will start to give ice chips, leave ng tube inserted until clear by surgery tomrrow. continue iv abx and ivf for hydration. - restart stent meds asa plavix, npo xpt icechips and meds. diagnosis: acute SBO ,resolving acute intractable abdominal pain Acute gastroenteritis possible, infectious etiology likely h/o coronary artery disease status post JOSSUE less than 3 months ago Hypertensive heart disease history abdominal surgery Plan: - NPO except medications and ice chips - Surgery following appreciated NG tube to LIS if meds and ice chips not being given- Restart aspirin Plavix DAPT Prn pain meds Prn antiemetics Maintenance IV fluids Tele Full code Plan discussed with: Patient Date of Service: Feb 05, 2025 Billing Provider: ANGELA KING MD Common Visit Codes: [id number] INP/OBS CARE(HIGH) ANGELA KING MD Feb 05, 2025 15:56
[2025-02-05 17:00] VITALS: BP 141/90; PULSE 66; RESP 18; TEMP 97.6; O2SAT 99
[2025-02-05 17:50] VITALS: PULSE 81; RESP 18; O2SAT 96
[2025-02-05 20:00] VITALS: PULSE 76
[2025-02-05 20:54] VITALS: BP 139/89; PULSE 77; RESP 18; TEMP 98.3; O2SAT 93
[2025-02-06] VITALS (7 sets, daily range): BP systolic 115–141; BP diastolic 73–97; PULSE 66–94; RESP 14–19; TEMP 97.5–98.6; O2SAT 94–99
[2025-02-06 07:34] LABS: Hematocrit 46.5 % (41.0-53.0); Hemoglobin 15.4 g/dL (13.5-17.5); Mean Corpuscular Hemoglobin 28.9 pg (28.0-32.0); Mean Corpuscular Volume 87.1 fL (80.0-100.0); Nucleated Red Blood Cells % 0.1 %
[2025-02-06 07:44] LABS: Alanine Aminotransferase 12 U/L (7-40); Albumin 3.6 g/dL (3.2-4.8); Alkaline Phosphatase 74 U/L (46-116); Anion Gap 8 (5-15); BUN/Creatinine Ratio 9.2 (10.0-20.0); Blood Urea Nitrogen 10 mg/dL (9-23); Carbon Dioxide 28 mmol/L (20-31); Glucose 90 mg/dL (74-106); Potassium 4.1 mmol/L (3.5-5.1); Sodium 145 mmol/L (136-145); Total Protein 6.0 g/dL (5.7-8.2)
[2025-02-06 07:45] LABS: Bilirubin, Total 0.8 mg/dL (0.2-1.0)
[2025-02-06 07:47] LABS: Calcium 8.7 mg/dL (8.7-10.4); Chloride 109 mmol/L (98-107)
[2025-02-06] MEDS: CLOPIDOGREL BISULFATE 75 MG TAB PO SCH (09:57)
[2025-02-06] MEDS: LABETALOL HCL 20 MG/4 ML VL IV PRN (09:58)
--- NOTE | 2025-02-06 10:18 | ECG ---
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
--- NOTE | 2025-02-06 14:27 | DVHPN2 ---
Reviewed: H&P Changes from previous H/P or p: No Changes General: Per HPI Objective Vitals Vital Signs Date Time Temp Pulse Resp B/P (MAP) Pulse Ox O2 Delivery O2 Flow Rate FiO2 02/06/25 13:00 98.3 66 14 115/73 (87) 98 98.3 02/05/25 20:00 Room Air* 0 21 Intake/Output Intake and Output 02/06/25 07:00 Intake Total 400 ml Output Total 550 ml Balance -150 ml Intake Oral 200 ml IV Total 200 ml Output Gastric Drainage Total 550 ml Exam Skin - Patients skin is warm and dry. HEENT - normocephalic, atraumatic, moist mucous membranes, no scleral icterus, no conjunctival pallor. Neck - full ROM, no LAD, no JVD Pulmonary - B/L clear breath sounds without any wheezing, rales or stridor cardiovascular - regular S1,S2 heard, no added sounds, no murmurs heard. peripheral pulses normal radial 2+, pedal 2+. No extremity edema GI - soft abdomen with mild tenderness diffuse. no hepatospleenomegaly. Bowel sounds hypoactive Neurological - Patient is A/O X 4 . Bilateral upper extremity strength 5/5, bilateral lower extremity strength 5/5, no facial droop, normal speech, no tremor, no sensory deficiets. Medications Current Medications Medications Dose Ordered Sig/Ben Route Start Time Stop Time Status Last Admin Dose Admin Pantoprazole Sodium 40 mg DAILY IV 02/05/25 10:00 02/06/25 09:58 40 MG Ondansetron HCl 4 mg Q6HPRN PRN IV 02/05/25 03:00 Labetalol HCl 10 mg Q2HPRN PRN IV 02/05/25 03:00 02/06/25 09:58 10 MG Sodium Chloride 1,000 ml @ 100 mls/hr Q10H IV 02/05/25 06:45 02/06/25 12:45 100 MLS/HR Ceftriaxone Sodium 50 ml @ 100 mls/hr DAILY@09 IV 02/05/25 09:00 02/06/25 09:57 100 MLS/HR Aspirin 81 mg DAILY PO 02/06/25 10:00 02/06/25 09:57 81 MG Clopidogrel Bisulfate 75 mg DAILY PO 02/06/25 10:00 02/06/25 09:57 75 MG Metronidazole 100 ml @ 100 mls/hr Q8HR IV 02/06/25 14:00 Metoclopramide HCl 5 mg Q8HR PO 02/06/25 14:00 Laboratory Results Laboratory Tests 02/06/25 07:00 Chemistry Test 02/06/25 07:00 Albumin 3.6 g/dL (3.2-4.8) Calcium Level 8.7 mg/dL (8.7-10.4) Total Protein 6.0 g/dL (5.7-8.2) LFT Test 02/06/25 07:00 Alanine Aminotransferase (ALT) 12 U/L (7-40) Alkaline Phosphatase 74 U/L (46-116) Aspartate Amino Transferase (AST) 11 U/L (13-40) L Total Bilirubin 0.8 mg/dL (0.2-1.0) Urinalysis Test 02/05/25 09:20 Urine Color Yellow (Yellow) Urine Clarity Clear (Clear) Urine pH 7.0 (5.0-9.0) Urine Specific [place] 1.027 (1.001-1.035) Urine Protein Trace (Negative) H Urine Ketones Negative (Negative) Urine Blood Negative /uL (Negative) Urine Nitrite Negative (Negative) Urine Bilirubin Negative (Negative) Urine Urobilinogen Normal mg/dL (Negative) Urine Leukocyte Esterase Negative /uL (Negative) Urine RBC 2 /hpf (0 - 3) Urine Microscopic WBC 1 /HPF (0-3) Urine Squamous Epithelial Cells Few /hpf (<5) Urine Bacteria None seen /hpf (None Seen) Urine Mucus Few (None Seen) Urine Glucose Normal mg/dL (Normal) Labs and/or images reviewed: Labs reviewed by me, Image(s) reviewed by me Assessment/Plan Assessment/Plan 50-year-old male presented to the hospital with a chief complaint of intractable abdominal pain and nausea for about 1-1/2 days prior to admission. Patient was apparently well until and on Thursday morning started to have abdominal pain associated with nausea. Patient was not able to tolerate anything oral, denied any bowel movements or passing flatus. Abdominal pain got worse following which he came to the hospital for further evaluation. In the ED CT abdomen pelvis was done which showed fairly high-grade distal SBO. Patient has a significant medical history of coronary artery disease s/p 2 JOSSUE placed in November 2024. -Past medical history: Coronary artery disease s/p 2 JOSSUE, thoracic aortic aneurysm, hypertension, polysubstance use 02/05: here for abd pain, CT found SBO, has hx of hernia repair, likely fibrosis cauing SBO. surgery consulting. SB series looks like contrast passing into colon. will start to give ice chips, leave ng tube inserted until clear by surgery tomrrow. continue iv abx and ivf for hydration. - restart stent meds asa plavix, npo xpt icechips and meds. 02/06: Patient continues to nausea. Consult active, for stools only had liquid watery stools. Patient has still feels pain epigastrium towards umbilicus. Concern for evolving disease with SBO, we will continue admission, needs more IV fluids and keep prn antiemetics Zofran IV 4 mg q.6h PRN. We will re-evaluate tomorrow. Continuing IV antibiotics. diagnosis: acute SBO ,resolving acute intractable abdominal pain Acute gastroenteritis possible, infectious etiology likely h/o coronary artery disease status post JOSSUE less than 3 months ago Hypertensive heart disease history abdominal surgery Plan: FLD - Surgery following appreciated NG tube to LIS if meds and ice chips not being given- iv abx Restart aspirin Plavix DAPT Prn pain meds Prn antiemetics Maintenance IV fluids Tele Full code Plan discussed with: Patient My Orders Orders - ANGELA KING MD Procedure Category Date Status Time Aspirin Chewable PHA 02/06/25 In Process Tablet 10:00 Clopidogrel Bisulfate PHA 02/06/25 In Process (Plavix) 10:00 Metronidazole PHA 02/06/25 In Process 500mg/100ml (Flagyl 14:00 Metoclopramide Tablet PHA 02/06/25 In Process (Reglan Tablet) 14:00 Date of Service: Feb 06, 2025 Billing Provider: ANGELA KING MD Common Visit Codes: [id number] INP/OBS CARE(HIGH) ANGELA KING MD Feb 06, 2025 14:27
[2025-02-06] MEDS: METOCLOPRAMIDE HCL 10 MG TAB PO SCH (15:46)
[2025-02-07] MEDS ORDERED: NITROGLYCERIN 0.4 MG SL TAB SL PRN
[2025-02-07 01:00] VITALS: BP 128/90; PULSE 83; RESP 18; TEMP 97.8; O2SAT 96
[2025-02-07] MEDS: ONDANSETRON HCL 4 MG/2 ML VIAL IV PRN (04:03)
[2025-02-07 05:00] VITALS: BP 153/97; PULSE 88; RESP 18; TEMP 98; O2SAT 95
[2025-02-07] MEDS: CALCIUM CARB 500 MG CHEW TAB PO PRN (05:29)
--- NOTE | 2025-02-07 07:34 | ECG ---
[facility] Test Date: 2025-02-06 Test Time: 23:52:04 Pat Name: EUGENIO BASS Department: Room: 0249T A Gender: M Rn Interventional: danielle : 1975 Requested By: ANGELA SERNA Order Number: [id number] Reading MD: Measurements Intervals [place] Rate: 77 P: 8 DC: 170 QRS: -36 QRSD: 96 T: 42 QT: 387 QTc: 438 Interpretive Statements Sinus rhythm Inferior infarct, old Consider anterior infarct Please click the below link to view image of tracing.
[2025-02-07 08:00] VITALS: PULSE 81; RESP 19
[2025-02-07 09:00] VITALS: BP 130/84; PULSE 80; RESP 16; TEMP 99.2; O2SAT 98
--- NOTE | 2025-02-07 10:24 | DVHPN2 ---
Reviewed: H&P Changes from previous H/P or p: No Changes General: Per HPI Objective Vitals Vital Signs Date Time Temp Pulse Resp B/P (MAP) Pulse Ox O2 Delivery O2 Flow Rate FiO2 02/07/25 09:00 99.2 80 16 130/84 (99) 98 99.2 02/06/25 20:00 Room Air* 0 21 Intake/Output Intake and Output 02/07/25 07:00 Intake Total 970 ml Output Total 400 ml Balance 570 ml Intake Oral 820 ml IV Total 150 ml Output Urine Total 400 ml # Voids 3 Exam Skin - Patients skin is warm and dry. HEENT - normocephalic, atraumatic, moist mucous membranes, no scleral icterus, no conjunctival pallor. Neck - full ROM, no LAD, no JVD Pulmonary - B/L clear breath sounds without any wheezing, rales or stridor cardiovascular - regular S1,S2 heard, no added sounds, no murmurs heard. peripheral pulses normal radial 2+, pedal 2+. No extremity edema GI - soft abdomen with mild tenderness diffuse. no hepatospleenomegaly. Bowel sounds hypoactive Neurological - Patient is A/O X 4 . Bilateral upper extremity strength 5/5, bilateral lower extremity strength 5/5, no facial droop, normal speech, no tremor, no sensory deficiets. Medications Current Medications Medications Dose Ordered Sig/Ben Route Start Time Stop Time Status Last Admin Dose Admin Pantoprazole Sodium 40 mg DAILY IV 02/05/25 10:00 02/07/25 09:35 40 MG Ondansetron HCl 4 mg Q6HPRN PRN IV 02/05/25 03:00 02/07/25 04:03 4 MG Labetalol HCl 10 mg Q2HPRN PRN IV 02/05/25 03:00 02/06/25 09:58 10 MG Sodium Chloride 1,000 ml @ 100 mls/hr Q10H IV 02/05/25 06:45 02/07/25 09:34 100 MLS/HR Ceftriaxone Sodium 50 ml @ 100 mls/hr DAILY@09 IV 02/05/25 09:00 02/07/25 09:33 100 MLS/HR Aspirin 81 mg DAILY PO 02/06/25 10:00 02/07/25 09:35 81 MG Clopidogrel Bisulfate 75 mg DAILY PO 02/06/25 10:00 02/07/25 09:34 75 MG Metronidazole 100 ml @ 100 mls/hr Q8HR IV 02/06/25 14:00 02/07/25 05:28 100 MLS/HR Metoclopramide HCl 5 mg Q8HR PO 02/06/25 14:00 02/07/25 05:27 5 MG Nitroglycerin 0.4 mg Q5MINP PRN SL 02/07/25 00:00 Calcium Carbonate 500 mg QIDPRN PRN PO 02/07/25 05:30 02/07/25 05:29 500 MG Laboratory Results Laboratory Tests 02/06/25 07:00 Urinalysis Test 02/05/25 09:20 Urine Color Yellow (Yellow) Urine Clarity Clear (Clear) Urine pH 7.0 (5.0-9.0) Urine Specific [place] 1.027 (1.001-1.035) Urine Protein Trace (Negative) H Urine Ketones Negative (Negative) Urine Blood Negative /uL (Negative) Urine Nitrite Negative (Negative) Urine Bilirubin Negative (Negative) Urine Urobilinogen Normal mg/dL (Negative) Urine Leukocyte Esterase Negative /uL (Negative) Urine RBC 2 /hpf (0 - 3) Urine Microscopic WBC 1 /HPF (0-3) Urine Squamous Epithelial Cells Few /hpf (<5) Urine Bacteria None seen /hpf (None Seen) Urine Mucus Few (None Seen) Urine Glucose Normal mg/dL (Normal) Assessment/Plan Assessment/Plan 50-year-old male presented to the hospital with a chief complaint of intractable abdominal pain and nausea for about 1-1/2 days prior to admission. Patient was apparently well until and on Thursday morning started to have abdominal pain associated with nausea. Patient was not able to tolerate anything oral, denied any bowel movements or passing flatus. Abdominal pain got worse following which he came to the hospital for further evaluation. In the ED CT abdomen pelvis was done which showed fairly high-grade distal SBO. Patient has a significant medical history of coronary artery disease s/p 2 JOSSUE placed in November 2024. -Past medical history: Coronary artery disease s/p 2 JOSSUE, thoracic aortic aneurysm, hypertension, polysubstance use 02/05: here for abd pain, CT found SBO, has hx of hernia repair, likely fibrosis cauing SBO. surgery consulting. SB series looks like contrast passing into colon. will start to give ice chips, leave ng tube inserted until clear by surgery tomrrow. continue iv abx and ivf for hydration. - restart stent meds asa plavix, npo xpt icechips and meds. 02/06: Patient continues to nausea. Consult active, for stools only had liquid watery stools. Patient has still feels pain epigastrium towards umbilicus. Concern for evolving disease with SBO, we will continue admission, needs more IV fluids and keep prn antiemetics Zofran IV 4 mg q.6h PRN. We will re-evaluate tomorrow. Continuing IV antibiotics. 02/07: Patient is still having watery output for stools, we will culture stool and stool WBC. Has some abdominal pain last night, this morning normal bowel sounds soft abdomen we will get upright KUB. If all is stable possible discharge today with full liquid diet 1-2 weeks, probiotics 1 month, Pepcid 20 b.i.d. 1 month,. Follow up with PCP, follow up with [facility] clinic. Patient may need surgical follow up referral by PCP if pain continues. If any acute sudden onset to worsening of pain we will need to return to nearest ER. diagnosis: acute SBO ,resolving acute intractable abdominal pain Acute gastroenteritis possible, infectious etiology likely h/o coronary artery disease status post JOSSUE less than 3 months ago Hypertensive heart disease history abdominal surgery Plan: FLD - Surgery following appreciated NG tube to LIS if meds and ice chips not being given- iv abx Restart aspirin Plavix DAPT Prn pain meds Prn antiemetics Maintenance IV fluids Tele Full code My Orders Orders - ANGELA KING MD Procedure Category Date Status Time Metronidazole PHA 02/06/25 In Process 500mg/100ml (Flagyl 14:00 Metoclopramide Tablet PHA 02/06/25 In Process (Reglan Tablet) 14:00 Nitroglycerin PHA 02/07/25 In Process Sublingual (Ntrostat 00:00 ANGELA KING MD Feb 07, 2025 10:24
[2025-02-07 13:00] VITALS: BP 135/82; PULSE 78; RESP 14; TEMP 98; O2SAT 95
[2025-02-07] MEDS ORDERED: AUG875T PO (13:31)
[2025-02-07] MEDS ORDERED: FAMO20TA10 PO (13:31)
--- NOTE | 2025-02-07 13:32 | DVHDS2 ---
Discharge Summary Date of Admission Feb 05, 2025 at 02:50 Date of Discharge: Feb 07, 2025 Labs/Diagnostic Data: Laboratory Results Test 02/06/25 07:00 02/05/25 09:20 02/05/25 03:10 02/04/25 21:46 White Blood Count 8.4 10^3/uL (4.4-10.8) Red Blood Count 5.34 10^6/uL (4.5-5.90) Hemoglobin 15.4 g/dL (13.5-17.5) Hematocrit 46.5 % (41.0-53.0) Mean Corpuscular Volume 87.1 fL (80.0-100.0) Mean Corpuscular Hemoglobin 28.9 pg (28.0-32.0) Mean Corpuscular Hemoglobin Concent 33.2 g/dL (32.0-36.0) Red Cell Distribution Width 14.1 % (11.8-14.3) Platelet Count 230 10^3/uL (140-450) Mean Platelet Volume 7.4 fL (6.9-10.8) Neutrophils (%) (Auto) 64.0 % (37.0-80.0) Lymphocytes (%) (Auto) 25.1 % (10.0-50.0) Monocytes (%) (Auto) 9.3 % (0.0-12.0) Eosinophils (%) (Auto) 1.2 % (0.0-7.0) Basophils (%) (Auto) 0.4 % (0.0-2.0) Neutrophils # (Auto) 5.4 10 ^3/uL (1.6-8.6) Lymphocytes # (Auto) 2.1 10 ^3/uL (0.4-5.4) Monocytes # (Auto) 0.8 10 ^3/uL (0-1.3) Eosinophils # (Auto) 0.1 10 ^3/uL (0-0.8) Basophils # (Auto) 0 10 ^3/uL (0-0.2) Nucleated Red Blood Cells 0.1 % Sodium Level 145 mmol/L (136-145) Potassium Level 4.1 mmol/L (3.5-5.1) Chloride Level 109 mmol/L (98-107) Carbon Dioxide Level 28 mmol/L (20-31) Anion Gap 8 (5-15) Blood Urea Nitrogen 10 mg/dL (9-23) Creatinine 1.09 mg/dL (0.700-1.30) Glomerular Filtration Rate Calc 82 mL/min (>90) BUN/Creatinine Ratio 9.2 (10.0-20.0) Serum Glucose 90 mg/dL (74-106) Calcium Level 8.7 mg/dL (8.7-10.4) Total Bilirubin 0.8 mg/dL (0.2-1.0) Aspartate Amino Transferase (AST) 11 U/L (13-40) Alanine Aminotransferase (ALT) 12 U/L (7-40) Alkaline Phosphatase 74 U/L (46-116) Total Protein 6.0 g/dL (5.7-8.2) Albumin 3.6 g/dL (3.2-4.8) Urine Color Yellow (Yellow) Urine Clarity Clear (Clear) Urine pH 7.0 (5.0-9.0) Urine Specific [place] 1.027 (1.001-1.035) Urine Protein Trace (Negative) Urine Ketones Negative (Negative) Urine Blood Negative /uL (Negative) Urine Nitrite Negative (Negative) Urine Bilirubin Negative (Negative) Urine Urobilinogen Normal mg/dL (Negative) Urine Leukocyte Esterase Negative /uL (Negative) Urine RBC 2 /hpf (0 - 3) Urine Microscopic WBC 1 /HPF (0-3) Urine Squamous Epithelial Cells Few /hpf (<5) Urine Bacteria None seen /hpf (None Seen) Urine Mucus Few (None Seen) Urine Glucose Normal mg/dL (Normal) Urine Opiates Screen Neg (NEGATIVE) Urine Fentanyl Screen Neg (NEGATIVE) Urine Barbiturates Screen Neg (NEGATIVE) Urine Phencyclidine Screen Neg (NEGATIVE) Urine Amphetamines Screen Pos (NEGATIVE) Urine Benzodiazepines Screen Neg (NEGATIVE) Urine Cocaine Screen Neg (NEGATIVE) Urine Cannabinoids Screen Pos (NEGATIVE) Prothrombin Time 11.9 sec (9.3-11.8) Prothrombin Time INR 1.14 (0.9-1.15) Activated Partial Thromboplast Time 29.9 SEC (24.5-34.5) Lactic Acid Level 1.3 mmol/L (0.4-2.0) Magnesium Level 2.4 mg/dL (1.6-2.6) Direct Bilirubin 0.3 mg/dL (<0.3) Lipase 40 U/L (12-53) Other Laboratory Tests 02/06/25 07:00 Brief Hx & Hospital Course: 50-year-old male presented to the hospital with a chief complaint of intractable abdominal pain and nausea for about 1-1/2 days prior to admission. Patient was apparently well until and on Thursday morning started to have abdominal pain associated with nausea. Patient was not able to tolerate anything oral, denied any bowel movements or passing flatus. Abdominal pain got worse following which he came to the hospital for further evaluation. In the ED CT abdomen pelvis was done which showed fairly high-grade distal SBO. Patient has a significant medical history of coronary artery disease s/p 2 JOSSUE placed in November 2024. -Past medical history: Coronary artery disease s/p 2 JOSSUE, thoracic aortic aneurysm, hypertension, polysubstance use 02/05: here for abd pain, CT found SBO, has hx of hernia repair, likely fibrosis cauing SBO. surgery consulting. SB series looks like contrast passing into colon. will start to give ice chips, leave ng tube inserted until clear by surgery tomrrow. continue iv abx and ivf for hydration. - restart stent meds asa plavix, npo except icechips and meds. 02/06: Patient continues to nausea. Consult active, for stools only had liquid watery stools. Patient has still feels pain epigastrium towards umbilicus. Concern for evolving disease with SBO, we will continue admission, needs more IV fluids and keep prn antiemetics Zofran IV 4 mg q.6h PRN. We will re-evaluate tomorrow. Continuing IV antibiotics. 02/07: Patient is still having watery output for stools, we will culture stool and stool WBC. Has some abdominal pain last night, this morning normal bowel sounds soft abdomen we will get upright KUB. If all is stable possible discharge today with full liquid diet 1-2 weeks, probiotics 1 month, Pepcid 20 b.i.d. 1 month,. Follow up with PCP, follow up with [facility] clinic. Patient may need surgical follow up referral by PCP if pain continues. If any acute sudden onset to worsening of pain we will need to return to nearest ER. diagnosis: acute SBO ,resolved acute intractable abdominal pain Acute gastroenteritis possible, infectious etiology likely h/o coronary artery disease status post JOSSUE less than 3 months ago Hypertensive heart disease history abdominal surgery Plan: -full liquid diet 1-2 weeks, -augmentin 875mg 2x/day for 5 days -probiotics 1 month, - Pepcid 20 b.i.d. 1 month,. -Follow up with PCP, pcp to review cultures - follow up with [facility] clinic. - continue other home medications. -Patient may need surgical follow up referral by PCP if pain continues. - If any acute sudden onset to worsening of pain we will need to return to nearest ER. Condition at Discharge: Fair Final Diagnosis/Problems List acute SBO ,resolved acute intractable abdominal pain Acute gastroenteritis possible, infectious etiology likely h/o coronary artery disease status post JOSSUE less than 3 months ago Hypertensive heart disease history abdominal surgery Discharge Disposition: Home Discharge Instruct/Medications Scheduled Aspirin (Aspir-81), 1 TAB PO DAILY Atorvastatin Calcium (Atorvastatin Calcium), 40 MG PO HS Metoprolol Succinate (Toprol Xl), 1 TAB PO DAILY Ticagrelor Base (Brilinta), 90 MG PO BID Valsartan (Valsartan), 160 MG PO DAILY Discharge Statement: "Patient was advised to return to the ER or call 911 if any headaches, dizziness, shortness of breath, chest pain, abdominal pain, bleeding, fevers, or worsening of medical condition. Patient was counseled about treatment plan, medications, possible side effects, patientverbalized understanding. All questions were answered to the best of my ability. This discharge took greater then 30 minutes in planning, reviewing documentation, counseling the patient, and discussing with other team members." ASSESSMENT ASSESSMENT Assessment Date of Service: Feb 07, 2025 Billing Provider: ANGELA KING MD Common Visit Codes: 53743-SYG/OBS DISCH DAY >30min ANGELA KING MD Feb 07, 2025 13:32
--- NOTE | 2025-02-07 15:12 | DVH ---
Date: 02/07/2025 01:05 PM Examination: XY KUB ABDOMEN SINGLE VIEW History: small bowel obstruction COMPARISON: None TECHNIQUE: Frontal views of the abdomen was obtained. FINDINGS: Bowel gas pattern is unremarkable. Oral contrast noted throughout the colon. No findings to suggest small bowel obstruction The lung bases are unremarkable. No acute osseous abnormality identified. IMPRESSION: 1. Nonobstructive bowel gas pattern.
== END 2025-02-07 16:03 | disposition home or self-care (01) | DRG 390 ==
LOC: ER 21:35 → OVERFLOW 02-05 02:50 → TELE-EAST 02-05 16:26
PROVIDERS: ADMIT Student in an Organized Health Care Education/Training Program; ATTEND Student in an Organized Health Care Education/Training Program
PROC: 0D9670Z Drainage of Stomach with Drainage Device, Via Natural or Artificial Opening (ICD-10-PCS; principal; 2025-02-05)
DX: K56.609 Unspecified intestinal obstruction, unspecified as to partial versus complete obstruction (principal); E66.9 Obesity, unspecified; I11.9 Hypertensive heart disease without heart failure; I71.40 Abdominal aortic aneurysm, without rupture, unspecified; F17.210 Nicotine dependence, cigarettes, uncomplicated; K52.9 Noninfective gastroenteritis and colitis, unspecified; I25.10 Atherosclerotic heart disease of native coronary artery without angina pectoris; Z95.5 Presence of coronary angioplasty implant and graft
CPT/HCPCS: 36415; 71045; 74018; 74176; 74250; 80048; 80053; 80076; 80307; 81001; 83605; 83690; 83735; 84132; 85025; 85610; 85730; 93005; G0378; J2405; J2470; J3490